=== PATIENT | male | born 1945 | race Asian ===

== ENCOUNTER → 2017-09-22 08:49 | Outpatient (CLI) | payer MEDICARE, OTHER, SELFPAY ==
[2017-09-22 11:03] LABS: Absolute Lymphocyte Count 1.57 X10^3/ul (0.83-4.51); Absolute Neutrophil Count 3.9 X10^3/uL (2.0-7.7); Basophil# 0.04 X10^3/uL; Basophil% 0.7 % (0-1); Eosinophil# 0.11 X10^3/uL; Eosinophils% 1.8 % (0-5); Hemoglobin 14.5 g/dl (13.0-16.5); Lymphocyte # 1.57 X10^3/ul (4.0); Lymphocyte % 26.2 % (19-41); Mean Corpuscular Hgb 31.3 pg (27.0-32.0); Monocyte# 0.35 X10^3/uL; Monocyte% 5.8 % (0-10); Neutrophil # 3.92 X10^3/uL (2.7-7.7); Neutrophil % 65.3 % (47-70); Platelet Count 236 K/mm3 (150-450); RBC Distribution Width CV 12.3 % (11.6-14.6); RBC Distribution Width SD 42.4 fl (35.1-43.9); Red Blood Count 4.63 M/mm3 (4.6-6.2)
[2017-09-22 11:08] LABS: POSITIVE COUNT NO; POSITIVE DIFFERENTIAL NO; POSITIVE MORPHOLOGY NO
[2017-09-22 11:53] LABS: ALB/GLOB Ratio 0.9 RATIO (0.9-2.4); AST(SGOT) 48 U/L (15-37); Alanine Aminotransfer ALT/SGPT 43 U/L (16-61); Albumin, Serum 3.7 g/dL (3.2-5.0); Alkaline Phosphatase 80 U/L (45-117); Anion Gap 7 (5-15); BUN 16 mg/dL (7-18); Calcium,Total 8.9 mg/dL (8.5-10.1); Chloride 104 mmol/L (98-107); EST Glomerular Filtration Rate 78 mL/min (>60); Est Glom Filt Rate - Afr Amer 95 mL/min (>60); Globulin 3.9 g/dL (2.2-4.2); Glucose 174 mg/dL (74-106); Potassium 4.7 mmol/L (3.5-5.1); Protein, Total 7.6 g/dL (6.4-8.2); Sodium Level 139 mmol/L (136-145); Thyroid Stim Hormone (TSH) 1.15 uIU/mL (0.358-3.74)
[2017-09-23 11:40] LABS: Hep C Antibodies <0.1 s/co ratio (0.0-0.9)
== END ==
PROVIDERS: Family Provider Family Medicine Geriatric Medicine; PCP Family Medicine Geriatric Medicine; Visit Provider Family Medicine Geriatric Medicine
DX: E11.9 Type 2 diabetes mellitus without complications (principal); I10 Essential (primary) hypertension; F52.8 Other sexual dysfunction not due to a substance or known physiological condition; Z13.89 Encounter for screening for other disorder
CPT/HCPCS: 36415; 80053; 84403; 84443; 85025; 86803

== ENCOUNTER → 2018-09-28 15:00 | Outpatient (CLI) | payer MEDICARE, OTHER, SELFPAY ==
[2018-09-28 17:22] LABS: Absolute Lymphocyte Count 1.53 X10^3/ul (0.83-4.51); Absolute Neutrophil Count 3.8 X10^3/uL (2.0-7.7); Basophil# 0.04 X10^3/uL; Basophil% 0.7 % (0-1); Eosinophil# 0.05 X10^3/uL; Eosinophils% 0.8 % (0-5); Hematocrit 42.8 % (40-54); Hemoglobin 13.9 g/dl (13.0-16.5); Lymphocyte # 1.53 X10^3/ul (4.0); Lymphocyte % 25.9 % (19-41); Mean Corp Hgb Conc 32.5 g/gl (32-36); Mean Corpuscular Hgb 30.8 pg (27.0-32.0); Mean Corpuscular Volume 94.7 fL (80-94); Mean Platelet Vol. 11.2 fl (6.2-12.0); Monocyte# 0.45 X10^3/uL; Monocyte% 7.6 % (0-10); Neutrophil # 3.83 X10^3/uL (2.7-7.7); Neutrophil % 64.8 % (47-70); Platelet Count 240 K/mm3 (150-450); RBC Distribution Width CV 12.5 % (11.6-14.6); RBC Distribution Width SD 42.6 fl (35.1-43.9); Red Blood Count 4.52 M/mm3 (4.6-6.2); White Blood Count 5.9 K/mm3 (4.4-11.0)
[2018-09-28 17:26] LABS: POSITIVE COUNT NO; POSITIVE DIFFERENTIAL NO; POSITIVE MORPHOLOGY NO
[2018-09-28 17:39] LABS: Vitamin D,25 Hydroxy 32.6 ng/mL (29.95-100.01)
[2018-09-28 17:45] LABS: ALB/GLOB Ratio 1.1 RATIO (0.9-2.4); AST(SGOT) 22 U/L (15-37); Alanine Aminotransfer ALT/SGPT 42 U/L (16-61); Albumin, Serum 3.8 g/dL (3.2-5.0); Alkaline Phosphatase 73 U/L (45-117); Anion Gap 8 (5-15); BUN 16 mg/dL (7-18); BUN/Creat Ratio 13.2 RATIO (10-20); Calcium,Total 8.8 mg/dL (8.5-10.1); Chloride 102 mmol/L (98-107); Creatinine, Serum 1.21 mg/dL (0.70-1.30); EST Glomerular Filtration Rate 63 mL/min (>60); Est Glom Filt Rate - Afr Amer 76 mL/min (>60); Globulin 3.4 g/dL (2.2-4.2); Glucose 246 mg/dL (74-106); Potassium 3.8 mmol/L (3.5-5.1); Protein, Total 7.2 g/dL (6.4-8.2); Sodium Level 140 mmol/L (136-145); Thyroid Stim Hormone (TSH) 1.05 uIU/mL (0.358-3.74)
== END ==
PROVIDERS: Family Provider Family Medicine Geriatric Medicine; PCP Family Medicine Geriatric Medicine; Visit Provider Family Medicine Geriatric Medicine
DX: E11.9 Type 2 diabetes mellitus without complications (principal); E55.9 Vitamin D deficiency, unspecified; I10 Essential (primary) hypertension; F52.8 Other sexual dysfunction not due to a substance or known physiological condition
CPT/HCPCS: 36415; 80053; 82306; 84403; 84443; 85025

== ENCOUNTER → 2019-03-10 14:19 | Outpatient (CLI) | payer MEDICARE, OTHER, SELFPAY ==
[2019-03-10 17:12] LABS: HIV - WCH Non-Reactive (Nonreactive)
[2019-03-10 17:57] LABS: Chlamydia Trachomatis by PCR Negative (Negative); Neisserai gonorrhoeae by PCR Negative (Negative); Probe Check PASS; Specimen Processing Control PASS
[2019-03-10 17:58] LABS: Sample Adequacy Control PASS
== END ==
PROVIDERS: Family Provider Family Medicine Geriatric Medicine; PCP Family Medicine Geriatric Medicine; Visit Provider Family Medicine Geriatric Medicine
DX: A64 Unspecified sexually transmitted disease (principal)
CPT/HCPCS: 36415; 86703; 87491; 87591

== ENCOUNTER → 2019-04-13 15:35 | Outpatient (CLI) | payer MEDICARE, OTHER, SELFPAY ==
[2019-04-13 16:35] LABS: Absolute Lymphocyte Count 1.16 X10^3/uL (0.83-4.51); Absolute Neutrophil Count 10.3 X10^3/uL (2.0-7.7); Basophil# 0.05 X10^3/uL; Basophil% 0.4 % (0-1); Eosinophil# 0.02 X10^3/uL; Eosinophils% 0.2 % (0-5); Hematocrit 40.8 % (40-54); Hemoglobin 13.4 g/dL (13.0-16.5); Lymphocyte # 1.16 X10^3/ul (4.0); Lymphocyte % 9.4 % (19-41); Mean Corp Hgb Conc 32.8 g/dL (32-36); Mean Corpuscular Hgb 31.4 pg (27.0-32.0); Mean Corpuscular Volume 95.6 fL (80-94); Mean Platelet Vol. 10.8 fl (6.2-12.0); Monocyte# 0.82 X10^3/uL; Monocyte% 6.6 % (0-10); NRBC Flagged by Analyzer 0 % (0-5); Neutrophil # 10.29 X10^3/uL (2.7-7.7); Neutrophil % 83.2 % (47-70); Platelet Count 273 K/mm3 (150-450); RBC Distribution Width CV 12.4 % (11.6-14.6); RBC Distribution Width SD 43.1 fl (35.1-43.9); Red Blood Count 4.27 M/mm3 (4.6-6.2); White Blood Count 12.4 K/mm3 (4.4-11.0)
[2019-04-13 17:00] LABS: ALB/GLOB Ratio 0.9 RATIO (0.9-2.4); AST(SGOT) 24 U/L (15-37); Alanine Aminotransfer ALT/SGPT 34 U/L (16-61); Albumin, Serum 3.6 g/dL (3.2-5.0); Alkaline Phosphatase 143 U/L (45-117); Anion Gap 7 (5-15); BUN 22 mg/dL (7-18); BUN/Creat Ratio 19.8 RATIO (10-20); Calcium,Total 9.1 mg/dL (8.5-10.1); Chloride 101 mmol/L (98-107); Creatinine, Serum 1.11 mg/dL (0.70-1.30); EST Glomerular Filtration Rate 69 mL/min (>60); Est Glom Filt Rate - Afr Amer 84 mL/min (>60); Globulin 4.2 g/dL (2.2-4.2); Glucose 231 mg/dL (74-106); Potassium 3.9 mmol/L (3.5-5.1); Protein, Total 7.8 g/dL (6.4-8.2); Sodium Level 138 mmol/L (136-145); Thyroid Stim Hormone (TSH) 1.12 uIU/mL (0.358-3.74)
== END ==
PROVIDERS: Family Provider Family Medicine Geriatric Medicine; PCP Family Medicine Geriatric Medicine; Visit Provider Family Medicine Geriatric Medicine
DX: E11.9 Type 2 diabetes mellitus without complications (principal); I10 Essential (primary) hypertension; E55.9 Vitamin D deficiency, unspecified
CPT/HCPCS: 36415; 80053; 82306; 84443; 85025

== ENCOUNTER → 2019-09-30 16:16 | Outpatient (CLI) | payer MEDICARE, OTHER, SELFPAY ==
[2019-09-30 16:42] LABS: Absolute Lymphocyte Count 1.56 X10^3/uL (0.83-4.51); Absolute Neutrophil Count 3.1 X10^3/uL (2.0-7.7); Basophil# 0.04 X10^3/uL; Basophil% 0.8 % (0-1); Eosinophil# 0.11 X10^3/uL; Eosinophils% 2.1 % (0-5); Hemoglobin 13.6 g/dL (13.0-16.5); Lymphocyte # 1.56 X10^3/ul (4.0); Lymphocyte % 29.6 % (19-41); Mean Corp Hgb Conc 32.4 g/dL (32-36); Mean Corpuscular Hgb 30.6 pg (27.0-32.0); Mean Corpuscular Volume 94.6 fL (80-94); Mean Platelet Vol. 10.7 fl (6.2-12.0); Monocyte# 0.41 X10^3/uL; Monocyte% 7.8 % (0-10); NRBC Flagged by Analyzer 0 % (0-5); Neutrophil # 3.14 X10^3/uL (2.7-7.7); Neutrophil % 59.5 % (47-70); Platelet Count 218 K/mm3 (150-450); RBC Distribution Width CV 12.3 % (11.6-14.6); RBC Distribution Width SD 42.8 fl (35.1-43.9); Red Blood Count 4.44 M/mm3 (4.6-6.2); White Blood Count 5.3 K/mm3 (4.4-11.0)
[2019-09-30 17:00] LABS: ALB/GLOB Ratio 1.1 RATIO (0.9-2.4); AST(SGOT) 29 U/L (15-37); Alanine Aminotransfer ALT/SGPT 54 U/L (16-61); Albumin, Serum 3.9 g/dL (3.2-5.0); Alkaline Phosphatase 94 U/L (45-117); Anion Gap 6 (5-15); BUN 18 mg/dL (7-18); Chloride 102 mmol/L (98-107); EST Glomerular Filtration Rate 63 mL/min (>60); Est Glom Filt Rate - Afr Amer 76 mL/min (>60); Globulin 3.6 g/dL (2.2-4.2); Glucose 234 mg/dL (74-106); Potassium 3.9 mmol/L (3.5-5.1); Protein, Total 7.5 g/dL (6.4-8.2); Sodium Level 139 mmol/L (136-145); Thyroid Stim Hormone (TSH) 1.78 uIU/mL (0.358-3.74)
[2019-10-04 10:58] LABS: Vitamin D,25 Hydroxy 47.6 ng/mL
== END ==
PROVIDERS: PCP Family Medicine Geriatric Medicine; Visit Provider Family Medicine Geriatric Medicine
DX: E11.9 Type 2 diabetes mellitus without complications (principal); E55.9 Vitamin D deficiency, unspecified; F52.8 Other sexual dysfunction not due to a substance or known physiological condition; I10 Essential (primary) hypertension
CPT/HCPCS: 36415; 80053; 82306; 84403; 84443; 85025

== ENCOUNTER → 2019-10-25 11:47 | Outpatient (CLI) | payer MEDICARE, OTHER, SELFPAY ==
--- NOTE | 2019-10-25 12:12 | RAD_ITS ---
STUDY: X-RAY - ABDOMEN/PELVIS REASON FOR EXAM: Male, 74 years old. FECAL IMPACTION X 1 MO. PROBABLE D/T NEW PRE-DIABETES MEDS TECHNIQUE: AP supine and upright views of the abdomen and pelvis. COMPARISON: Comparison is made with prior study dated August 29, 2016. FINDINGS: Normal visualized lung bases. There is an abundance of fecal material throughout the colon. There is no demonstrated free abdominal air. The visualized liver, spleen and kidneys are grossly normal in size and morphology. There are calcified phleboliths in the pelvis. There are degenerative changes of the visualized lumbar spine. RAD/Abd Inc Decub and/or Erect IMPRESSION: Large amount of fecal material is seen in the colon. Electronically Signed: Daniel Odom, at 12:56 EDT , Service support ,
[2019-10-25 12:27] LABS: Absolute Lymphocyte Count 1.22 X10^3/uL (0.83-4.51); Absolute Neutrophil Count 3.8 X10^3/uL (2.0-7.7); Basophil# 0.04 X10^3/uL; Basophil% 0.7 % (0-1); Eosinophil# 0.02 X10^3/uL; Eosinophils% 0.4 % (0-5); Hematocrit 42.7 % (40-54); Hemoglobin 14.1 g/dL (13.0-16.5); Lymphocyte # 1.22 X10^3/ul (4.0); Lymphocyte % 22.5 % (19-41); Mean Corpuscular Hgb 31.4 pg (27.0-32.0); Mean Corpuscular Volume 95.1 fL (80-94); Mean Platelet Vol. 10.3 fl (6.2-12.0); Monocyte# 0.34 X10^3/uL; Monocyte% 6.3 % (0-10); NRBC Flagged by Analyzer 0 % (0-5); Neutrophil # 3.79 X10^3/uL (2.7-7.7); Neutrophil % 69.9 % (47-70); Platelet Count 229 K/mm3 (150-450); RBC Distribution Width CV 12.1 % (11.6-14.6); RBC Distribution Width SD 42.5 fl (35.1-43.9); Red Blood Count 4.49 M/mm3 (4.6-6.2); White Blood Count 5.4 K/mm3 (4.4-11.0)
[2019-10-25 12:58] LABS: ALB/GLOB Ratio 1.2 RATIO (0.9-2.4); AST(SGOT) 25 U/L (15-37); Alanine Aminotransfer ALT/SGPT 34 U/L (16-61); Albumin, Serum 4.1 g/dL (3.2-5.0); Alkaline Phosphatase 67 U/L (45-117); Anion Gap 6 (5-15); BUN 17 mg/dL (7-18); BUN/Creat Ratio 15.3 RATIO (10-20); Calcium,Total 9.5 mg/dL (8.5-10.1); Chloride 103 mmol/L (98-107); Creatinine, Serum 1.11 mg/dL (0.70-1.30); EST Glomerular Filtration Rate 69 mL/min (>60); Est Glom Filt Rate - Afr Amer 83 mL/min (>60); Globulin 3.5 g/dL (2.2-4.2); Glucose 108 mg/dL (74-106); Potassium 4.4 mmol/L (3.5-5.1); Protein, Total 7.6 g/dL (6.4-8.2); Sodium Level 138 mmol/L (136-145); Thyroid Stim Hormone (TSH) 1.02 uIU/mL (0.358-3.74)
== END ==
LOC: POLAB3 11:47 → RAD 12:10
PROVIDERS: PCP Family Medicine Geriatric Medicine; Referring Provider Family Medicine Geriatric Medicine; Visit Provider Family Medicine Geriatric Medicine
DX: K56.41 Fecal impaction (principal); I10 Essential (primary) hypertension
CPT/HCPCS: 36415; 74019; 80053; 84443; 85025

== ENCOUNTER → 2019-11-22 15:49 | Outpatient (CLI) | payer MEDICARE, OTHER, SELFPAY ==
--- NOTE | 2019-11-22 15:53 | RAD_ITS ---
STUDY: X-RAY - THORACIC SPINE REASON FOR EXAM: Male, 74 years old. PATIENT STATES WAS RAKING LEAVES IS THE ONLY THING HE CAN THINK THAT HAS MADE HIS LOWER CERVICAL INTO HIS UPPER THORACIC HURT FOR ABOUT 1 WEEK NOW. TECHNIQUE: 4 view(s) of the thoracic spine were obtained. COMPARISON: None. FINDINGS: Normal kyphosis of the thoracic spine. There is a minimal lower thoracic levoscoliosis. There is endplate spondylosis of the mid to lower thoracic spine. Normal disc space heights. The soft tissue structures are unremarkable. RAD/Thoracic Spine 3 Views IMPRESSION: Minimal lower thoracic levoscoliosis. Endplate spondylosis of the mid to lower thoracic spine. There is no evidence of fracture or subluxation. Electronically Signed: Edwardo Heath MD at 16:24 EDT , Service support ,
--- NOTE | 2019-11-22 16:00 | RAD_ITS ---
STUDY: X-RAY - CERVICAL SPINE REASON FOR EXAM: Male, 74 years old. PATIENT STATES WAS RAKING LEAVES IS THE ONLY THING HE CAN THINK THAT HAS MADE HIS LOWER CERVICAL INTO HIS UPPER THORACIC HURT FOR ABOUT 1 WEEK NOW. TECHNIQUE: 3 view(s) of the cervical spine were obtained. COMPARISON: None FINDINGS: Normal anterior atlantoaxial articulation. Normal odontoid process. Normal cervical lordosis. There is minimal endplate spondylosis of C5-C7. Normal disc space heights. The soft tissue structures are unremarkable. RAD/Cerv Spine 2 or 3 Views IMPRESSION: Minimal endplate spondylosis of C5-C7. There is no evidence of fracture or subluxation. Disc spacing is preserved. Electronically Signed: Edwardo Heath MD at 16:23 EDT , Service support ,
== END ==
PROVIDERS: PCP Family Medicine Geriatric Medicine; Referring Provider Family Medicine Geriatric Medicine; Visit Provider Family Medicine Geriatric Medicine
DX: M47.24 Other spondylosis with radiculopathy, thoracic region (principal); M47.812 Spondylosis without myelopathy or radiculopathy, cervical region
CPT/HCPCS: 72040; 72072

== ENCOUNTER → 2019-12-30 16:19 | Outpatient (CLI) | payer MEDICARE, OTHER, SELFPAY ==
[2019-12-30 17:12] LABS: Absolute Lymphocyte Count 1.44 X10^3/uL (0.83-4.51); Absolute Neutrophil Count 3.7 X10^3/uL (2.0-7.7); Basophil# 0.04 X10^3/uL; Basophil% 0.7 % (0-1); Eosinophil# 0.04 X10^3/uL; Eosinophils% 0.7 % (0-5); Hemoglobin 12.8 g/dL (13.0-16.5); Lymphocyte # 1.44 X10^3/ul (4.0); Lymphocyte % 24.9 % (19-41); Mean Corp Hgb Conc 32.8 g/dL (32-36); Mean Corpuscular Hgb 32.6 pg (27.0-32.0); Mean Corpuscular Volume 99.2 fL (80-94); Mean Platelet Vol. 9.9 fl (6.2-12.0); Monocyte% 8.7 % (0-10); NRBC Flagged by Analyzer 0 % (0-5); Neutrophil # 3.72 X10^3/uL (2.7-7.7); Neutrophil % 64.3 % (47-70); Platelet Count 291 K/mm3 (150-450); RBC Distribution Width SD 47.5 fl (35.1-43.9); Red Blood Count 3.93 M/mm3 (4.6-6.2); White Blood Count 5.8 K/mm3 (4.4-11.0)
[2019-12-30 17:27] LABS: Vitamin D,25 Hydroxy 41.7 ng/mL
[2019-12-30 17:34] LABS: AST(SGOT) 13 U/L (15-37); Alanine Aminotransfer ALT/SGPT 28 U/L (16-61); Albumin, Serum 3.6 g/dL (3.2-5.0); Alkaline Phosphatase 77 U/L (45-117); Anion Gap 6 (5-15); BUN 16 mg/dL (7-18); BUN/Creat Ratio 15.8 RATIO (10-20); Calcium,Total 9.2 mg/dL (8.5-10.1); Chloride 101 mmol/L (98-107); Creatinine, Serum 1.01 mg/dL (0.70-1.30); EST Glomerular Filtration Rate 77 mL/min (>60); Est Glom Filt Rate - Afr Amer 93 mL/min (>60); Globulin 3.6 g/dL (2.2-4.2); Glucose 164 mg/dL (74-106); Potassium 3.8 mmol/L (3.5-5.1); Protein, Total 7.2 g/dL (6.4-8.2); Sodium Level 139 mmol/L (136-145); Thyroid Stim Hormone (TSH) 1.32 uIU/mL (0.358-3.74)
== END ==
PROVIDERS: PCP Family Medicine Geriatric Medicine; Visit Provider Family Medicine Geriatric Medicine
DX: E11.9 Type 2 diabetes mellitus without complications (principal); E55.9 Vitamin D deficiency, unspecified; F52.8 Other sexual dysfunction not due to a substance or known physiological condition; I10 Essential (primary) hypertension
CPT/HCPCS: 36415; 80053; 82306; 84403; 84443; 85025

== ENCOUNTER → 2020-04-06 16:14 | Outpatient (CLI) | payer MEDICARE, OTHER, SELFPAY ==
[2020-04-06 17:39] LABS: Absolute Neutrophil Count 3.8 X10^3/uL (2.0-7.7); Basophil# 0.04 X10^3/uL; Basophil% 0.6 % (0-1); Eosinophil# 0.06 X10^3/uL; Hematocrit 43.5 % (40-54); Hemoglobin 14.3 g/dL (13.0-16.5); Lymphocyte % 27.4 % (19-41); Mean Corp Hgb Conc 32.9 g/dL (32-36); Mean Corpuscular Hgb 32.2 pg (27.0-32.0); Mean Platelet Vol. 10.4 fl (6.2-12.0); Monocyte# 0.56 X10^3/uL; NRBC Flagged by Analyzer 0 % (0-5); Neutrophil # 3.84 X10^3/uL (2.7-7.7); Neutrophil % 61.8 % (47-70); Platelet Count 272 K/mm3 (150-450); RBC Distribution Width CV 11.9 % (11.6-14.6); RBC Distribution Width SD 43.2 fl (35.1-43.9); Red Blood Count 4.44 M/mm3 (4.6-6.2); White Blood Count 6.2 K/mm3 (4.4-11.0)
[2020-04-06 18:27] LABS: ALB/GLOB Ratio 1.1 RATIO (0.9-2.4); AST(SGOT) 35 U/L (15-37); Alanine Aminotransfer ALT/SGPT 31 U/L (16-61); Albumin, Serum 3.9 g/dL (3.2-5.0); Alkaline Phosphatase 66 U/L (45-117); Anion Gap 7 (5-15); BUN 21 mg/dL (7-18); BUN/Creat Ratio 13.2 RATIO (10-20); Calcium,Total 9.6 mg/dL (8.5-10.1); Chloride 102 mmol/L (98-107); Creatinine, Serum 1.59 mg/dL (0.70-1.30); EST Glomerular Filtration Rate 46 mL/min (>60); Est Glom Filt Rate - Afr Amer 55 mL/min (>60); Globulin 3.6 g/dL (2.2-4.2); Glucose 141 mg/dL (74-106); Potassium 4.5 mmol/L (3.5-5.1); Protein, Total 7.5 g/dL (6.4-8.2); Sodium Level 140 mmol/L (136-145); Thyroid Stim Hormone (TSH) 1.31 uIU/mL (0.358-3.74)
== END ==
PROVIDERS: PCP Family Medicine Geriatric Medicine; Visit Provider Family Medicine Geriatric Medicine
DX: E11.9 Type 2 diabetes mellitus without complications (principal); E55.9 Vitamin D deficiency, unspecified; F52.8 Other sexual dysfunction not due to a substance or known physiological condition; I10 Essential (primary) hypertension
CPT/HCPCS: 36415; 80053; 82306; 84403; 84443; 85025

== ENCOUNTER → 2020-05-15 17:54 | Outpatient (CLI) | payer MEDICARE, OTHER, SELFPAY | PROVIDERS: PCP Family Medicine Geriatric Medicine; Referring Provider Family Medicine Geriatric Medicine; Visit Provider Family Medicine Geriatric Medicine | DX: U07.1 COVID-19 (principal) | CPT/HCPCS: 87633; 87635; C9803; U0002; U0003 ==

== ENCOUNTER 2020-05-16 16:18 | Emergency (ER) | payer MEDICARE, OTHER, SELFPAY ==
[2020-05-16 16:19] VITALS: BP 152/78; PULSE 92; RESP 18; TEMP 36.2; O2SAT 98; BMI 21.7
--- NOTE | 2020-05-16 17:13 | ED.DCSUM_ITS ---
History of Present Illness Chief Complaint: General Illness Informant: Patient Narrative: Patient is a previously healthy 74-year-old male who presents to the emergency department for decreased appetite. He was diagnosed with Covid. His initial symptoms started this past Friday with URI-like symptoms. He has had some body aches. He denies any significant shortness of breath. He has developed a cough. No nausea/vomiting or diarrhea. He states that he has lost his taste which has contributed to not want to eat anything. He has been drinking some ensures. States he has lost a few pounds over the past week. He is tolerating fluids well still. Patient has been treating himself at home with Tylenol and ibuprofen. Patient is just frustrated as his symptoms have not started to improve at this point. He denies any chest pain. No abdominal pain. No fevers. No headache. No stiff neck. Past Medical History - Allergies and Home Meds Allergies/Adverse Reactions: Allergies No Known Allergies Allergy (Verified 05/16/20 16:22) Primary Care Physician: Tigre Ortiz Chi, MD [Primary Care Provider] - 3-5 Days if not improving Prior records reviewed: Yes Past Medical History: None Smoking Status: Never smoker Review of Systems All systems negative except as indicated General: Denies: Chills, Fever, Sweats Eyes: Denies: Visual changes - bilaterally, Diplopia ENT: Denies: Rhinorrhea, Sore throat Cardiovascular: Denies: Chest pain, Palpitations Respiratory: Reports: Cough. Denies: Dyspnea, Dyspnea on exertion Gastrointestinal: Denies: Abdominal pain, Nausea, Vomiting, Diarrhea Genitourinary: Denies: Dysuria, Hematuria, Frequency Musculoskeletal: Reports: Myalgias. Denies: Back pain, Extremity Pain Skin: Denies: Rash, Wounds Neurological: Denies: Headache, Weakness, Numbness Physical Exam Vital Signs/Narrative: Vital Signs Temp Pulse Resp BP Pulse Ox 05/16/20 16:19 97.2 F L 92 18 152/78 H 98 Inital Vital Signs reviewed: Yes General: Well nourished, Well developed, No Acute Distress Head: Normocephalic, Atraumatic Eyes: Perrl, EOMI ENT: Moist mucous membranes, No rhinorrhea Neck: Supple, Nontender Cardiovascular: Regular rate, Regular rhythm, No murmurs Respiratory: No distress, CTA bilaterally, Chest nontender Abdomen: Soft, Nontender, Nondistended, Normal bowel sounds Back: Nontender, Normal Inspection Extremities: Nontender, No edema Skin: Normal color, No rash Neurological: Alert, Oriented x3, Normal Strength, Normal Sensation Psychological: Normal affect, Normal Mood Diagnostic/Tx/Re-eval - Medical Decision Making Patient presents to the emergency department after being found out to be Covid positive. He is concerned as he has a loss of taste and has not been eating very much lately. Upon arrival to the emergency department he is not hypotensive. He is not tachycardic. He is well-appearing overall. No oxygen desaturations. He does appear comfortable in bed. Still tolerating fluids. Discussed doing lab work and full work-up with the fact his vital signs are stable and he still tolerating fluids I do not feel this is necessary at this time. I do expect his symptoms to start improving over the next few days. Jase paz is currently self isolating at home. He has no shortness of breath. Has been satting well. Will discharge home in stable condition. He is to keep follow-up with his PCP. Did advise to get a pulse oximeter if he starts to develop any shortness of breath. If he has any desaturations he can return to the emergency department at any time. He understands and is agreeable with this plan. All questions answered. ED Disposition - Plan for ED Patient: Disposition: Home or Assisted Living Diagnosis: COVID-19, Loss of appetite Instructions: ED URI Viral Referrals: Tigre Ortiz Chi, MD [Primary Care Provider] - 3-5 Days if not improving
[2020-05-16 17:46] VITALS: BP 130/71; PULSE 86; RESP 16; O2SAT 97
== END 2020-05-16 17:47 | disposition home or self-care (01) ==
PROVIDERS: Emergency Provider Emergency Medicine; PCP Family Medicine Geriatric Medicine
DX: U07.1 COVID-19 (principal)
CPT/HCPCS: 99281

== ENCOUNTER 2020-06-07 01:41 | Inpatient (IN) | payer MEDICARE, OTHER, SELFPAY ==
[2020-06-07] VITALS (13 sets, daily range): BP systolic 114–149; BP diastolic 59–91; PULSE 65–91; RESP 15–24; TEMP 35.8–36.6; O2SAT 95–100; BMI 21.5; BMI 21.2
--- NOTE | 2020-06-07 02:04 | ED.VIS.GEN ---
History of Present Illness Chief Complaint: Allergic Reaction Informant: Patient Onset: - - 30 min Context: - - awoke w/ sx around 0130 Timing: Continuous Quality: swollen Location: tongue Current Severity: Severe Maximum Severity: Severe Worsened by: nothing Relieved by: nothing Associated Symptoms: cannot swallow. breathing fine. no other complaints. Narrative: Patient woke up with a very swollen tongue. He states it is worse on the left, but he can feel that it goes all the way back toward his throat. He cannot swallow but he is having no trouble breathing. Nothing also swollen anywhere else, and no other symptoms tonight. He states this happened one other time about 2 months ago, it was just the anterior aspect of his tongue, and went away on its own. He is on lisinopril for blood pressure, it was started around 5 months ago. Also he just had COVID-19, and is fully recovered within the last week, his illness was uncomplicated. He is on no new medications now. - Past Medical History (1) Hypertension Status: Chronic (2) Hyperlipidemia Status: Chronic (3) Type 2 diabetes mellitus Status: Chronic (4) BPH (benign prostatic hyperplasia) Status: Chronic Past Medical History - Allergies and Home Meds Allergies/Adverse Reactions: Allergies No Known Allergies Allergy (Verified 06/07/20 01:47) Primary Care Physician: Tigre Ortiz Chi, MD [Primary Care Provider] - Lives: Spouse/ Significant Other Smoking Status: Never smoker Review of Systems General: Denies: Chills, Fever, Sweats Eyes: Denies: Visual changes - bilaterally, Diplopia ENT: Reports: - - Swollen tongue. Dysphagia as a result.. Denies: Rhinorrhea, Sore throat Cardiovascular: Denies: Chest pain, Palpitations Respiratory: Denies: Dyspnea, Cough, Dyspnea on exertion Gastrointestinal: Denies: Abdominal pain, Nausea, Vomiting, Diarrhea, Melena, Hematochezia Genitourinary: Denies: Dysuria, Hematuria, Frequency Musculoskeletal: Denies: Back pain, Swelling, Extremity Pain Skin: Denies: Rash, Wounds Neurological: Denies: Headache, Weakness, Numbness Physical Exam Vital Signs/Narrative: Vital Signs Temp Pulse Resp BP Pulse Ox 06/07/20 01:42 96.5 F L 76 16 138/91 H 100 Inital Vital Signs reviewed: Yes General: Well nourished, Well developed, No Acute Distress - Speaking somewhat garbled, but able to converse without difficulty or stridor Head: Normocephalic, Atraumatic Eyes: Perrl, EOMI ENT: Moist mucous membranes, No rhinorrhea, - - Very edematous tongue, asymmetric with worse edema on the left. Progresses posteriorly. Not able to visualize the patient's soft palate or posterior oropharynx. No trismus. No sublingual edema/tenderness. Neck: Supple, Nontender Cardiovascular: Regular rate, Regular rhythm, No murmurs. Negative for: Tachycardia Respiratory: No distress, CTA bilaterally, Chest nontender Abdomen: Soft, Nontender, Nondistended, Normal bowel sounds Back: Nontender, Normal Inspection Extremities: Nontender, No edema Skin: Normal color, No rash Neurological: Alert, Oriented x3, Cranial nerves II-XII grossly intact, Normal Strength, Normal Sensation, Normal Gait Psychological: Normal affect, Normal Mood Diagnostic/Tx/Re-eval Laboratory Tests 06/07/20 06/07/20 Range/Units 01:50 01:50 WBC 8.0 (4.4-11.0) K/mm3 RBC 4.17 L (4.6-6.2) M/mm3 Hgb 13.0 (13.0-16.5) g/dL Hct 41.5 (40-54) % MCV 99.5 H (80-94) fL MCH 31.2 (27.0-32.0) pg MCHC 31.3 L (32-36) g/dL RDW Std Deviation 50.3 H (35.1-43.9) fl RDW Coeff of Juan Manuel 13.9 (11.6-14.6) % Plt Count 304 (150-450) K/mm3 MPV 10.1 (6.2-12.0) fl Immature Gran % (Auto) 0.300 (0.0-0.9) % Neut % (Auto) 57.0 (47-70) % Lymph % (Auto) 28.3 (19-41) % [place] % (Auto) 11.8 H (0-10) % Eos % (Auto) 1.8 (0-5) % Baso % (Auto) 0.8 (0-1) % Absolute Neuts (auto) 4.6 (2.0-7.7) X10^3/uL Absolute Lymphs (auto) 2.26 (0.83-4.51) X10^3/uL Nucleated RBC % 0 (0-5) % Sodium 141 (136-145) mmol/L Potassium 4.1 (3.5-5.1) mmol/L Chloride 107 (98-107) mmol/L Carbon Dioxide 29.0 (21.0-32.0) mmol/L Anion Gap 5 (5-15) BUN 16 (7-18) mg/dL Creatinine 1.09 (0.70-1.30) mg/dL Estim Creat Clear Calc 54.81 ml/min Est GFR (MDRD) Af Amer 85 (>60) mL/min Est GFR (MDRD) Non-Af 70 (>60) mL/min BUN/Creatinine Ratio 14.7 (10-20) RATIO Glucose 129 H (74-106) mg/dL Calcium 9.2 (8.5-10.1) mg/dL - Medical Decision Making Suspect lisinopril involved here. He was given Decadron, Benadryl, Pepcid, labs drawn, plan is for admission to ICU for further observation. I do not think he needs to be intubated right now, but if he gets worse, anesthesia and ENT may need to be involved. We do not have icatibant. However after discussing with pharmacy, we do have ecallantide, a different bradykinin inhibitor. We will give him 1 dose of 30 mg subcutaneous here in the emergency department prior to admission. - Critical Care Time Critical care time (excluding procedures): 30-74 minutes, Including time spent:, Discussing w/Patient &/or Family/Refinery Operator Light Ends Recovery, Discussing w/Consultants, Arranging Admission or Transfer, Performing Direct Patient Care at Bedside ED Disposition - Plan for ED Patient: Disposition: Acute Care Hospital [facility] Diagnosis: Angioedema Referrals: Tigre Ortiz Chi, MD [Primary Care Provider] -
[2020-06-07 02:07] LABS: Absolute Lymphocyte Count 2.26 X10^3/uL (0.83-4.51); Absolute Neutrophil Count 4.6 X10^3/uL (2.0-7.7); Basophil# 0.06 X10^3/uL; Basophil% 0.8 % (0-1); Eosinophil# 0.14 X10^3/uL; Eosinophils% 1.8 % (0-5); Hematocrit 41.5 % (40-54); Lymphocyte # 2.26 X10^3/ul (4.0); Lymphocyte % 28.3 % (19-41); Mean Corp Hgb Conc 31.3 g/dL (32-36); Mean Corpuscular Hgb 31.2 pg (27.0-32.0); Mean Corpuscular Volume 99.5 fL (80-94); Mean Platelet Vol. 10.1 fl (6.2-12.0); Monocyte# 0.94 X10^3/uL; Monocyte% 11.8 % (0-10); NRBC Flagged by Analyzer 0 % (0-5); Neutrophil # 4.56 X10^3/uL (2.7-7.7); Platelet Count 304 K/mm3 (150-450); RBC Distribution Width CV 13.9 % (11.6-14.6); RBC Distribution Width SD 50.3 fl (35.1-43.9); Red Blood Count 4.17 M/mm3 (4.6-6.2)
[2020-06-07] MEDS: dexAMETHasone 10 MG/ML Vial IV (02:08)
[2020-06-07] MEDS: DiphenhydrAMINE 50 MG/ML Syringe 25 MG IV ×2 (02:08→05:44)
[2020-06-07] MEDS: Famotidine 200 MG/20 ML MDV 20 MG in 0.9% Normal Saline (Pres. free 8 ML 300 MG IV ×2 (02:09→10:34)
[2020-06-07 02:17] LABS: Anion Gap 5 (5-15); BUN 16 mg/dL (7-18); BUN/Creat Ratio 14.7 RATIO (10-20); Calcium,Total 9.2 mg/dL (8.5-10.1); Chloride 107 mmol/L (98-107); Creatinine, Serum 1.09 mg/dL (0.70-1.30); EST Glomerular Filtration Rate 70 mL/min (>60); Est Glom Filt Rate - Afr Amer 85 mL/min (>60); Estimated Creatinine Clearance 54.81 ml/min; Glucose 129 mg/dL (74-106); Potassium 4.1 mmol/L (3.5-5.1); Sodium Level 141 mmol/L (136-145)
--- NOTE | 2020-06-07 02:40 | HP.PCM_ITS ---
Problem List (1) Angioedema Status: Acute Qualifiers: Encounter type: initial encounter Qualified Code(s): T78.3XXA - Angioneurotic edema, initial encounter (2) BPH (benign prostatic hyperplasia) Status: Chronic Qualifiers: Lower urinary tract symptom presence: unspecified whether lower urinary tract symptoms present Qualified Code(s): N40.0 - Benign prostatic hyperplasia without lower urinary tract symptoms (3) Hyperlipidemia Status: Chronic Qualifiers: Hyperlipidemia type: unspecified Qualified Code(s): E78.5 - Hyperlipidemia, unspecified (4) Hypertension Status: Chronic Qualifiers: Hypertension type: essential hypertension Qualified Code(s): I10 - Essential (primary) hypertension (5) Type 2 diabetes mellitus Status: Chronic Qualifiers: Diabetes mellitus [facility] insulin use: without termite exterminator use Diabetes mellitus complication status: with other specified complication Qualified Code(s): E11.69 - Type 2 diabetes mellitus with other specified complication History of Present Illness Date of Admission: 06/07/20 Chief Complaint: Tongue edema with dyspnea. The patient is a 74 y/o M w/ PMHx: HTN, HLD, Diabetes mellitus type II with peripheral neuropathy, BPH who presents to the [facility] ED on 06/07/20 with history of sudden onset tongue edema and some difficulty breathing starting approximately 0130, awakening with the symptoms with also difficulty swallowing prompting ED presentation. Patient noted initial sensation of worsening swelling on the left side but continued to progress and states this happened approximately 2 months prior to current presentation but at that time was mostly on the anterior aspect of the tongue and resolved on its own. Patient notes some difficulty talking secondary to a swelling of his tongue and difficulty swallowing his saliva. Patient does take lisinopril and has been taking it for approximately 5 months. Of note patient had been evaluated recently in the ED on 05/16/20 with general illness at that time with decreased appetite, URI symptoms, body aches, cough as well as loss of sense of taste with diagnosis of Covid. Patient states he has been fully recovered from his coronavirus infection and asymptomatic for at least 1 week although he notes his taste is approximately 80% recovery. He denies any recent new medications. Work-up in the ED included T 96.5, heart rate 76, BP 138/91, respiratory rate 16, on a percent on room air, CBC with WC, hemoglobin 13, platelet 304 without marked shift, BMP unremarkable aside glucose 129. In the ED patient ministered famotidine, Benadryl and Decadron. Past Medical History Past Medical History (Chronic Problems): Chronic Problems Hypertension (Chronic) Hyperlipidemia (Chronic) Type 2 diabetes mellitus (Chronic) BPH (benign prostatic hyperplasia) (Chronic) Allergies No Known Allergies Allergy (Verified 06/07/20 01:47) Home Medications: Ambulatory Orders Medication Instructions Recorded Finasteride [Proscar] 5 mg PO DAILY 05/16/20 Gabapentin [Neurontin] 100 mg PO DAILY 05/16/20 Lisinopril [Zestril] 2.5 mg PO DAILY 05/16/20 Pioglitazone [Actos] 30 mg PO DAILY 05/16/20 Rosuvastatin Calcium [Crestor] 40 mg PO QHS 05/16/20 metFORMIN (XR) [Glucophage Xr] 500 mg PO BID 05/16/20 Surgical History: no surgical history Psychiatric History: No pertinent psych hx Lives: Alone Smoking Status: Never smoker Tobacco Use: Non-smoker Alcohol: None Drugs: None - *Family History Maternal History Items: - - Patient denies any market paternal or maternal family history including heart disease, diabetes or cancer. Paternal History Items: - - Patient denies any market paternal or maternal family history including heart disease, diabetes or cancer. Review of Systems Constitutional: Reports: Fatigue. Denies: Chills, Fever, Weight Change HEENT: Reports: Difficulty Swallowing, - - Lip edema, tongue edema .. Denies: Head Aches, Sinus Congestion, Sinus Drainage Cardiovascular: Denies: Chest Pain, Palpitations Respiratory: Reports: Shortness of Breath. Denies: Cough, Shortness of breath at rest, Sputum production Gastrointestinal: Denies: Abdominal Pain, Nausea, Vomiting Genitourinary: Denies: Dysuria Musculoskeletal: Denies: Joint Pain, Joint Tenderness Skin: Denies: Rash, Wounds Neurological: Denies: Numbness, Tingling, Focal weakness Psychiatric: Denies: Anxiety, Depression, Homicidal Ideations, Suicidal Ideations Hematologic/ Lymphatic: Denies: Easy Bruising, Easy Bleeding VTE Information - Inpt Only VTE Present on Admission: No VTE Mechan Device Prophylaxis: SCD's VTE Pharm Prophylaxis ordered?: Yes Patient Problems: Active and Suspected Problems Angioedema (Acute) Subjective: Patient seated upright in the ED bed, fatigued appearance, currently does not appear in acute respiratory distress but does have significant upper lip but primarily tongue edema and some oropharynx appearance of edema, able to move tongue some, some difficulty with swallowing and secretions he notes but no evidence of dyspnea. Objective: Physical Examination: General: awake, alert, oriented x 3 and cooperative, seated upright in the ED bed, fatigued appearance, no obvious current respiratory distress. Skin: normal color, turgor, no icterus, cyanosis. HEENT: AT/NC, EOMI, PERRLA, dry MM, no carotid bruits or JVD noted, some mild upper lip edema but primarily significant tongue edema and some oropharynx appearance of edema, able to move tongue some, some difficulty with swallowing and secretions he notes but no evidence of dyspnea. Lungs: CTA bilaterally, moderate effort, moderate decrease BL bases, no rales, ronchi or wheezing. Heart: Regular rate and rhythm; no gallop, rub audible. Abdomen: soft, NTTP, ND, normal BS, no HSM. Extremities: no cyanosis, clubbing, or edema. Neurological: patient awake, alert, oriented as noted; cognitive function intact; pupils equally reactive to light and accomodation; cranial nerves II-XII grossly normal, moving all 4 extremities, no focal deficits, strength mildly to moderately global decrease secondary to acute presentation. Psychiatric: affect appears fatigued, no obvious respiratory distress, no acute evidence of depressive or anxiety feelings. - Physical Exam Vitals/I&O's: Vital Signs Temp Pulse Resp BP Pulse Ox 96.5 F L 76 16 138/91 H 100 06/07/20 01:42 06/07/20 01:42 06/07/20 01:42 06/07/20 01:42 06/07/20 01:42 Oxygen Delivery Method Room Air Weight: 141 lb 8.588 oz Body Mass Index (BMI) 21.5 Laboratory Results 06/07/20 01:50: WBC 8.0, RBC 4.17 L, Hgb 13.0, Hct 41.5, MCV 99.5 H, MCH 31.2, MCHC 31.3 L, RDW Std Deviation 50.3 H, RDW Coeff of Juan Manuel 13.9, Plt Count 304, MPV 10.1, Immature Gran % (Auto) 0.300, Neut % (Auto) 57.0, Lymph % (Auto) 28.3, [place] % (Auto) 11.8 H, Eos % (Auto) 1.8, Baso % (Auto) 0.8, Absolute Neuts (auto) 4.6, Absolute Lymphs (auto) 2.26, Nucleated RBC % 0 06/07/20 01:50: Sodium 141, Potassium 4.1, Chloride 107, Carbon Dioxide 29.0, Anion Gap 5, BUN 16, Creatinine 1.09, Estim Creat Clear Calc 54.81, Est GFR (MDRD) Af Amer 85, Est GFR (MDRD) Non-Af 70, BUN/Creatinine Ratio 14.7, Glucose 129 H, Calcium 9.2 Assessment/Plan All Active Problems Angioedema (Acute) The patient is a 74 y/o M w/ PMHx: HTN, HLD, Diabetes mellitus type II with peripheral neuropathy, BPH who presents to the [facility] ED on 06/07/20 with history of sudden onset tongue edema and some difficulty breathing starting approximately 0130, awakening with the symptoms with also difficulty swallowing prompting ED presentation. 1. Acute angioedema with associated dyspnea and dysphagia: Given severity of presentation will admit to the ICU to be cautious, will request podiatric physician consultation, maintain n.p.o. status, head of bed with aspiration precautions, maintain airway cart near the room, will continue patient on scheduled famotidine, Benadryl and Solu-Medrol. Dosed x 1 Kalbitor (unclear if hereditary angioedema) in the ED. If any further concerns about airway may also consider ENT consultation. Lisinopril will be named as allergy and the patient chart. Will maintain on NS but if needed may change to D5NS. 2. Hypertension: Lisinopril will be placed as an allergy in patient chart, given difficulty swallowing and acute presentation will defer any oral additions, as needed IV hydralazine. 3. Hyperlipidemia: We will continue patient statin regimen once clinically appropriate for oral intake. 4. Diabetes mellitus type II: Hold oral home regimen, currently given status will maintain n.p.o. with addition of ADA diet once clinically improved, in the interim will maintain every 6 hour accu checks w/ ISS, may continue Neurontin once clinically improved and oral intake safe. 5. BPH: We will temporarily hold patient Proscar, resume once clinically imp roved as noted. 6. DVT prophylaxis: SCDs, Lovenox. 7. CODE status: Patient HCPOA is Jonathan Brizuela who is a friend and living will is [place] in place. Discussed CODE status at length including difference between FULL code, DNR-CCA and DNR-CC status. Following discussions about the differences in these status, requested Full Code status. Understands that he may need intubated for airway safety if his airway if further compromised. Advanced Care Planning Face to Face Time: 16 minutes. Inpatient E&M: 63423 Init Hosp L3 Procedures: 54731 Advncd Care Plan 30 Min
[2020-06-07] MEDS: ECALLANTIDE 30 MG SQ (03:17)
--- NOTE | 2020-06-07 03:44 | NURSING ---
Pt able to speak w/altered tones but is understandable. Pt able to protrude tongue, obvious swelling noted w/L>R; anterior neck palpated and L underside of mandible in soft tissue noted to be edematous as well. Pt able to swallow w/much difficulty noted.
[2020-06-07] MEDS: 0.9% Normal Saline 1,000 ML 100 ML IV (04:04)
--- NOTE | 2020-06-07 04:12 | NURSING ---
Noted swelling to L side of tongue is reducing; L underside to mandible still same as before; pt states that swallowing is getting easier too.
--- NOTE | 2020-06-07 04:54 | NURSING ---
Pt noted to have lowering oxygen saturation on monitor, began at 89% then dropped to 85%. Upon inspection, pt found to be asleep w/minimal chest rise noted. Pt woke on own as he felt someone watching him. Explained to pt that he has a bit of sleep apnea; also explained to pt staff concerns for increasing airway obstruction to be causing oxygen sats to drop. Pt protruded tongue and swelling cont to decrease as noted from initial assessment. Pt able to swallow much easier now. Pt states Thank you for your concern and assessment of the situation.
[2020-06-07] MEDS: Insulin Lispro 100 UNIT/ML INSULN.PEN SC (05:43)
[2020-06-07 05:46] LABS: Bedside Glucose 198 mg/dL (70-110)
--- NOTE | 2020-06-07 07:00 | CON.PCM_ITS ---
Reason for Consult Date of Consultation: 06/07/20 Reason for Consultation: Angioedema History of Present Illness: The patient is a 74-year-old male, with a history as outlined below, who presented to the emergency department on June 07 with complaints of rather acute onset tongue swelling and difficulty swallowing at approximately 1:30 AM. The patient did note that the left side of his tongue was significantly swollen out of proportion to the rest. He also reported that he was having difficulty swallowing and also perceived a certain degree of dyspnea as well. The patient recently recovered from a coronavirus infection at the end of April. He is currently prescribed an MICHELLE inhibitor and states that he has been on the aforementioned medication now for approximately 6 months. He does recall having had a similar episode to this approximately 2 months ago. However, that parti cular episode was much less severe and resolved on its own. On presentation to the emergency department, the patient was noted to be afebrile and hemodynamically stable. He was maintaining appropriate oxygen saturations on room air. Laboratory evaluation revealed a normal white blood cell count. Chemistry profile was unremarkable. The patient was treated symptomatically in the emergency department with steroids, Benadryl, Pepcid and Kalbitor. The patient was subsequently admitted to the medical intensive care unit for close monitoring. Overnight, the patient has remained clinically stable with improvement in his oropharyngeal swelling noted. He denies any shortness of breath this morning. He does report improvement in his swallowing. Past Medical History Past Medical History (Chronic Problems): Chronic Problems Hypertension (Chronic) Hyperlipidemia (Chronic) Type 2 diabetes mellitus (Chronic) BPH (benign prostatic hyperplasia) (Chronic) Allergies lisinopril Allergy (Verified 06/07/20 03:07) Angioedema Home Medications: Ambulatory Orders Medication Instructions Recorded Finasteride [Proscar] 5 mg PO DAILY 05/16/20 Gabapentin [Neurontin] 100 mg PO DAILY 05/16/20 Pioglitazone [Actos] 30 mg PO DAILY 05/16/20 Rosuvastatin Calcium [Crestor] 40 mg PO QHS 05/16/20 metFORMIN (XR) [Glucophage Xr] 500 mg PO BID 05/16/20 MethylPREDNISolone DosePak [Medrol 4 mg PO UD #1 box 06/07/20 DosePak] Surgical History: no surgical history Psychiatric History: No pertinent psych hx Lives: Alone Smoking Status: Never smoker Tobacco Use: Non-smoker Alcohol: None Drugs: None - *Family History Maternal History Items: - - Patient denies any market paternal or maternal family history including heart disease, diabetes or cancer. Paternal History Items: - - Patient denies any market paternal or maternal family history including heart disease, diabetes or cancer. Review of Systems Constitutional: Reports: Weight Change Eyes: Denies: Blurred vision, Double vision HEENT: Reports: Difficulty Swallowing Cardiovascular: Denies: Chest Pain, Palpitations Respiratory: Reports: Shortness of Breath, Shortness of breath at rest. Denies: Cough, Sputum production Gastrointestinal: Denies: Abdominal Pain, Nausea, Vomiting Genitourinary: Denies: Dysuria Musculoskeletal: Denies: Joint Pain, Joint Tenderness Skin: Denies: Rash, Wounds Neurological: Denies: Numbness, Tingling, Focal weakness Psychiatric: Denies: Anxiety, Depression, Homicidal Ideations, Suicidal Ideations Hematologic/ Lymphatic: Denies: Easy Bruising, Easy Bleeding Patient Problems: Active and Suspected Problems Angioedema (Acute) Objective: The patient's most recent lab work, culture data and imaging studies have all been personally reviewed. - Physical Exam Vitals/I&O's: Vital Signs Temp Pulse Resp BP Pulse Ox 97.7 F L 74 16 132/79 H 97 06/07/20 03:40 06/07/20 06:00 06/07/20 06:00 06/07/20 06:00 06/07/20 06:00 Oxygen Delivery Method Room Air Weight: 139 lb 5.314 oz Body Mass Index (BMI) 21.2 Intake and Output for Last 24 Hours 06/05/20 06/06/20 06/07/20 23:59 23:59 23:59 Intake Total Output Total 325 / 325 Balance -315 / -315 General: Alert, Oriented x3, Cooperative, No apparent distress HEENT: Atraumatic, PERRLA, Normocephalic, - - There is some mild swelling in the left anterior neck/submandibular region Oral: - - No significant oropharyngeal or tongue swelling noted. Neck: Supple, No Nodes, Trachea Midline Lungs: Normal air movement Cardiovascular: Regular rate, Regular Rhythm Abdomen: Bowel Sounds Present, Soft, Non Tender Extremities: No clubbing, No cyanosis, No edema Skin: No breakdown Musculoskeletal: No Tenderness to Palpation of Joints or Extremities, No Muscle Wasting Lymphatic: No Cervical, Supraclavicular, or Inguinal Adenopathy Neurological: Cranial nerves II-XII grossly intact, Neuro grossly intact Psych/Mental Status: Alert and oriented to time, place, person, mood and affect Labs (Last 48 Hours) 06/07/20 06/07/20 06/07/20 01:50 01:50 05:41 WBC 8.0 RBC 4.17 L Hgb 13.0 Hct 41.5 MCV 99.5 H MCH 31.2 MCHC 31.3 L RDW Std Deviation 50.3 H RDW Coeff of Juan Manuel 13.9 Plt Count 304 MPV 10.1 Immature Gran % (Auto) 0.300 Neut % (Auto) 57.0 Lymph % (Auto) 28.3 [place] % (Auto) 11.8 H Eos % (Auto) 1.8 Baso % (Auto) 0.8 Absolute Neuts (auto) 4.6 Absolute Lymphs (auto) 2.26 Nucleated RBC % 0 Sodium 141 Potassium 4.1 Chloride 107 Carbon Dioxide 29.0 Anion Gap 5 BUN 16 Creatinine 1.09 Estim Creat Clear Calc 54.81 Est GFR (MDRD) Af Amer 85 Est GFR (MDRD) Non-Af 70 BUN/Creatinine Ratio 14.7 Glucose 129 H Calcium 9.2 POC Glucose 198 H Current Medications Acetaminophen (Acetaminophen 650 Mg Suppository) 650 mg RECTAL Q4H PRN PRN PRN Reason: Pain Score 1-10/Temp > 100.7 F Albuterol Sulfate (Albuterol 2.5 Mg/3 Ml Vial.Neb.) 2.5 mg INHALATION Q2H PRN PRN PRN Reason: Dyspnea, wheezing Diphenhydramine HCl (Diphenhydramine 50 Mg/Ml Syringe) 25 mg IV Q6 [facility] Last Admin: 06/07/20 05:44 Dose: 25 mg Documented by: Enoxaparin Sodium (Enoxaparin 40 Mg/0.4 Ml Syringe) 40 mg SC DAILY [facility] Hydralazine HCl (Hydralazine 20 Mg/Ml Vial) 10 mg IV Q4H PRN PRN PRN Reason: SBP > 160 Sodium Chloride () 1,000 mls @ 100 mls/hr IV .Q10H [facility] Last Admin: 06/07/20 04:04 Dose: 100 mls/hr Documented by: Famotidine 20 mg/ Sodium (Chloride) 10 mls @ 300 mls/hr IV Q12 DERRICK Sodium Chloride () 250 mls @ 15 mls/hr IV .[id number] PRN PRN Reason: Saline Flush Insulin Human Lispro (Insulin Lispro 100 Unit/Ml Insuln.Pen) 0 unit SC Q6 DERRICK; Protocol Last Admin: 06/07/20 05:43 Dose: 2 u Documented by: Methylprednisolone (Methylprednisolone 40 Mg/Ml Vial) 40 mg IV Q8 DERRICK Morphine Sulfate (Morphine 2 Mg/Ml Syringe) 2 mg IV Q3H PRN PRN PRN Reason: Pain Score 6-10 Ondansetron HCl (Ondansetron 4 Mg/2 Ml Vial) 4 mg IV Q8H PRN PRN PRN Reason: NAUSEA/VOMITING Prochlorperazine Edisylate (Prochlorperazine 10 Mg/2 Ml Vial) 5 mg IV Q4H PRN PRN PRN Reason: Breakthrough Nausea/Vomiting Sodium Chloride (0.9% Saline Lock 10 Ml Syringe) 10 - 40 ml IV UD PRN PRN Reason: SALINE FLUSH Assessment/Plan Active and Suspected Problems Angioedema (Acute) RECOMMENDATIONS: 1. Stop continuous supplemental IV fluids. 2. Continue Pepcid and Benadryl today. 3. We will continue steroids yet today with plans to discontinue tomorrow. 4. Okay to advance diet. 5. The patient is medically stable for transfer out of the intensive care unit. IMPRESSIONS: 1. Angioedema Potentially related to use of MICHELLE inhibitor. No other clear precipitating etiology identified. The patient denies any swallowing difficulties. He is able to handle his secretions and his airway remains intact. We will plan to continue current supportive measures with Pepcid, Benadryl and steroids today. These medications can likely be discontinued tomorrow. Discontinue lisinopril indefinitely. 2. Hypertension/hyperlipidemia/diabetes mellitus/BPH Complicates care, management, recovery and prognosis. Okay to continue home medications as indicated, with the exception of lisinopril. This note was generated with [employer] dictation software. It may contain incorrect words, spelling, and punctuation that were not noted in checking the note before signing. Inpatient E&M: 20727 Init Hosp L3
--- NOTE | 2020-06-07 08:03 | NURSING ---
No change in pt's swollen tongue. Pt feels that it is improved as well.
--- NOTE | 2020-06-07 09:36 | PCM.DC ---
- Discharge Diagnoses Current Active Problems: Current Active and Chronic Problems Hypertension (Chronic) Hyperlipidemia (Chronic) Type 2 diabetes mellitus (Chronic) BPH (benign prostatic hyperplasia) (Chronic) Angioedema (Acute) You will use the following diet at home:: Calorie/Carbohydrate Controlled (specify 1200, 1400, etc) - RESUME YOUR HOME DIET Your food should be the consistency of: Regular Your liquids should be the consistency of: Regular/Thin Discharge Activity: Return to Normal Activity Weight Bearing Status: Full weight bearing Additional Instructions: rETURN TO EMERGENCY ROOM IF YOU NOTICE INCREASED LIP OR TONGUE SWELLING OR HAVE TROUBLE SWALLOWING OR BREATHING YOU MAY TAKE OVER THE COUNTER BENADRYL 25 MG EVERY 6 HOURS FOR THE NEXT 48 HRS IF YOU WANT Allergies/Adverse Reactions: Allergies lisinopril Allergy (Verified 06/07/20 03:07) Angioedema Medications to take at Discharge Finasteride [Proscar] 5 mg PO DAILY 05/16/20 Gabapentin [Neurontin] 100 mg PO DAILY 05/16/20 Pioglitazone [Actos] 30 mg PO DAILY 05/16/20 Rosuvastatin Calcium [Crestor] 40 mg PO QHS 05/16/20 metFORMIN (XR) [Glucophage Xr] 500 mg PO BID 05/16/20 MethylPREDNISolone DosePak [Medrol DosePak] 4 mg PO UD #1 box 06/07/20 The following prescriptions were given: MethylPREDNISolone DosePak [Medrol DosePak] 4 mg PO UD #1 box Transmission Status: Pending to [facility]/pharmacy #[id number] Primary Care Physician: Tigre Ortiz Chi, MD [Primary Care Provider] - Please follow up with your Primary Care Physician in: IN 1-2 WEEKS Test Results: Test results from this visit will be discussed in further detail at your follow-up appointment, if applicable.
--- NOTE | 2020-06-07 10:13 | CASEMGMT ---
RN CM Assessment Note Chart review assessment. Per nursing, patient is independent, feeling improved and stated he was going to [employer] today. No dc concerns noted. Diagnosis: angioedema PCP: Dr. Ortiz Insurance: [facility] Preferred Pharmacy: [facility], [facility] Prescription Benefit: yes LNOK: Friend, Jonathan Hummel listed Living Arrangements: Lives independently Tranportation: drives Patient DC Goals: Home DC Plan: Home on discharge. No concerns were noted. Patient is ambulatory and independent. Hafsa ARORA RN ACM
--- NOTE | 2020-06-08 15:39 | DS.PCM_ITS ---
Discharge Date and Diagnosis - Problem List Patient Problems: Active and Suspected Problems Angioedema (Acute) Date of Admission: 06/07/20 Date of Discharge: 06/07/20 - Primary Discharge Diagnosis Acute Problems: Active Problems #1 Angioedema (Acute) secondary to lisinopril usage #2 type 2 diabetes #3 hyperlipidemia - Secondary Discharge Diagnosis Chronic Problems: Chronic Problems Hypertension (Chronic) Hyperlipidemia (Chronic) Type 2 diabetes mellitus (Chronic) BPH (benign prostatic hyperplasia) (Chronic) Hospital Course and Treatment Operations: None Procedures: None Summary of Care Provided: The patient is a 74 year old M seen in the emergency room at [facility] with chief complaint of swallowing difficulties due to a swollen tongue. He denied any breathing difficulties. Patient had a similar incident 2 months prior but it was just part of his tongue and it went away on its own. Patient was currently on lisinopril as an outpatient. Work-up in the emergency room included labs which showed a normal CBC and a normal chemistry panel. By examination the patient was felt to have acute angioedema from his lisinopril. Patient was admitted to ICU, placed on IV Solu-Medrol and given IV Benadryl and Pepcid. Patient symptoms improved rapidly and he was reevaluated on 06/07/2020 around 10 AM. Patient was able eat breakfast without difficulty was having no breathing difficulties. On examination he appeared in good health and spirits. Vital signs as documented. Skin warm and dry and without overt rashes. Patient had minimal swelling of the his upper lip and tongue. Neck without JVD, neck was supple, trachea midline, thyroid was normal. Lungs clear bilaterally, normal air movement was noted. Heart exam notable for regular rhythm, normal sounds and absence of murmurs, rubs or gallops. Abdomen unremarkable and without evidence of organomegaly, masses, or abdominal aortic enlargement. Bowel sounds are present, abdomen is not distended. Extremities nonedematous, no cyanosis was noted, no clubbing was noted. Neuro: Cranial nerves II through XII are grossly intact, no focal motor deficits were noted, sensation to light touch and pinprick intact, motor exam 5/5 throughout. Psych: Patient is alert and oriented x3, he does not appear anxious or depressed, he does not appear agitated. It was felt that the patient could be safely discharged home, he was discharged home on 06/07/2020. Patient Problems: Active and Suspected Problems Angioedema (Acute) - Physical Exam Vitals/I&O's: Vital Signs Temp Pulse Resp BP Pulse Ox 97.9 F 82 24 H 114/59 L 98 06/07/20 08:00 06/07/20 10:00 06/07/20 10:00 06/07/20 10:00 06/07/20 10:00 Oxygen Delivery Method Room Air Weight: 63.2 kg Body Mass Index (BMI) 21.2 Intake and Output for Last 24 Hours 06/06/20 06/07/20 06/08/20 23:59 23:59 23:59 Intake Total 541.67 / 541.67 Output Total 625 / 625 Balance -83.33 / -83.33 Discharge Activity: Return to Normal Activity Weight Bearing Status: Full weight bearing Home Medications: Medications to take at Discharge Finasteride [Proscar] 5 mg PO DAILY 05/16/20 Gabapentin [Neurontin] 100 mg PO DAILY 05/16/20 Pioglitazone [Actos] 30 mg PO DAILY 05/16/20 Rosuvastatin Calcium [Crestor] 40 mg PO QHS 05/16/20 metFORMIN (XR) [Glucophage Xr] 500 mg PO BID 05/16/20 MethylPREDNISolone DosePak [Medrol DosePak] 4 mg PO UD #1 box 06/07/20 Following Prescriptions Were Given to Patient: MethylPREDNISolone DosePak [Medrol DosePak] 4 mg PO UD #1 box Transmission Status: Received by [facility]/pharmacy #[id number] Primary Care Physician: Tigre Ortiz Chi, MD [Primary Care Provider] - Please follow up with your Primary Care Physician in: IN 1-2 WEEKS Disposition: Home Minutes spent on discharge:: 31 Patient Condition:: Stable Medical Necessity - Tobacco Use Smoking Status: Never smoker Tobacco Use: Non-smoker Meaningful Use Info Meaningful Use Diagnoses (Choose all that apply): None applicable Inpatient E&M: 81625 Disch Hosp
== END 2020-06-07 10:55 | disposition home or self-care (01) | DRG 916 ==
LOC: ED 02:40 → ICU 03:10
PROVIDERS: Admitting Provider Family Medicine; Emergency Provider Emergency Medicine; PCP Family Medicine Geriatric Medicine; Visit Provider Internal Medicine
DX: T78.3XXA Angioneurotic edema, initial encounter (principal); T46.4X5A Adverse effect of angiotensin-converting-enzyme inhibitors, initial encounter; E11.42 Type 2 diabetes mellitus with diabetic polyneuropathy; E78.5 Hyperlipidemia, unspecified; I10 Essential (primary) hypertension; N40.0 Benign prostatic hyperplasia without lower urinary tract symptoms; R13.10 Dysphagia, unspecified; Z86.19 Personal history of other infectious and parasitic diseases; Z79.899 Other long term (current) drug therapy; Z79.84 Long term (current) use of oral hypoglycemic drugs
CPT/HCPCS: 80048; 82962; 85025; 99284; J7030; A4216; J1290; J3490

== ENCOUNTER → 2020-06-29 15:40 | Outpatient (CLI) | payer MEDICARE, OTHER, SELFPAY ==
[2020-06-07 03:27] VITALS: BMI 21.2
[2020-06-29 17:41] LABS: Absolute Lymphocyte Count 1.41 X10^3/uL (0.83-4.51); Absolute Neutrophil Count 3.9 X10^3/uL (2.0-7.7); Basophil# 0.05 X10^3/uL; Basophil% 0.8 % (0-1); Eosinophil# 0.18 X10^3/uL; Hematocrit 39.5 % (40-54); Hemoglobin 12.8 g/dL (13.0-16.5); Lymphocyte # 1.41 X10^3/ul (4.0); Lymphocyte % 23.2 % (19-41); Mean Corp Hgb Conc 32.4 g/dL (32-36); Mean Corpuscular Hgb 32.1 pg (27.0-32.0); Mean Platelet Vol. 10.4 fl (6.2-12.0); Monocyte% 8.2 % (0-10); NRBC Flagged by Analyzer 0 % (0-5); Neutrophil # 3.91 X10^3/uL (2.7-7.7); Neutrophil % 64.5 % (47-70); Platelet Count 317 K/mm3 (150-450); RBC Distribution Width CV 13.5 % (11.6-14.6); RBC Distribution Width SD 49.8 fl (35.1-43.9); Red Blood Count 3.99 M/mm3 (4.6-6.2); White Blood Count 6.1 K/mm3 (4.4-11.0)
[2020-06-29 17:56] LABS: Vitamin D,25 Hydroxy 39.1 ng/mL
[2020-06-29 18:04] LABS: AST(SGOT) 20 U/L (15-37); Alanine Aminotransfer ALT/SGPT 31 U/L (16-61); Albumin, Serum 3.6 g/dL (3.2-5.0); Alkaline Phosphatase 98 U/L (45-117); Anion Gap 4 (5-15); BUN 17 mg/dL (7-18); BUN/Creat Ratio 14.9 RATIO (10-20); Chloride 103 mmol/L (98-107); Creatinine, Serum 1.14 mg/dL (0.70-1.30); EST Glomerular Filtration Rate 67 mL/min (>60); Est Glom Filt Rate - Afr Amer 81 mL/min (>60); Globulin 3.7 g/dL (2.2-4.2); Glucose 215 mg/dL (74-106); Protein, Total 7.3 g/dL (6.4-8.2); Sodium Level 139 mmol/L (136-145); Thyroid Stim Hormone (TSH) 1.42 uIU/mL (0.358-3.74)
== END ==
PROVIDERS: PCP Family Medicine Geriatric Medicine; Visit Provider Family Medicine Geriatric Medicine
DX: I10 Essential (primary) hypertension (principal); E11.9 Type 2 diabetes mellitus without complications; E55.9 Vitamin D deficiency, unspecified; F52.8 Other sexual dysfunction not due to a substance or known physiological condition
CPT/HCPCS: 36415; 80053; 82306; 84403; 84443; 85025

== ENCOUNTER → 2020-08-22 | Outpatient (CLI) | payer MEDICARE, OTHER, SELFPAY ==
[2020-06-07 03:27] VITALS: BMI 21.2
== END | disposition home or self-care (01) ==
LOC: LABSPEC 14:21
PROVIDERS: PCP Family Medicine Geriatric Medicine; Visit Provider Family Medicine Geriatric Medicine
DX: R81 Glycosuria (principal)
CPT/HCPCS: 87086

== ENCOUNTER → 2020-10-05 14:55 | Outpatient (CLI) | payer MEDICARE, OTHER, SELFPAY ==
[2020-06-07 03:27] VITALS: BMI 21.2
[2020-10-05 16:24] LABS: Absolute Lymphocyte Count 1.69 X10^3/uL (0.83-4.51); Absolute Neutrophil Count 4.1 X10^3/uL (2.0-7.7); Basophil# 0.05 X10^3/uL; Basophil% 0.8 % (0-1); Eosinophil# 0.04 X10^3/uL; Eosinophils% 0.6 % (0-5); Hematocrit 47.1 % (40-54); Hemoglobin 14.9 g/dL (13.0-16.5); Lymphocyte # 1.69 X10^3/ul (4.0); Lymphocyte % 26.2 % (19-41); Mean Corp Hgb Conc 31.6 g/dL (32-36); Mean Corpuscular Hgb 30.5 pg (27.0-32.0); Mean Corpuscular Volume 96.3 fL (80-94); Mean Platelet Vol. 10.8 fl (6.2-12.0); Monocyte# 0.52 X10^3/uL; Monocyte% 8.1 % (0-10); NRBC Flagged by Analyzer 0 % (0-5); Neutrophil # 4.14 X10^3/uL (2.7-7.7); Neutrophil % 64.1 % (47-70); Platelet Count 257 K/mm3 (150-450); RBC Distribution Width CV 12.5 % (11.6-14.6); RBC Distribution Width SD 44.5 fl (35.1-43.9); Red Blood Count 4.89 M/mm3 (4.6-6.2); White Blood Count 6.5 K/mm3 (4.4-11.0)
[2020-10-05 16:53] LABS: Vitamin D,25 Hydroxy 52.9 ng/mL
[2020-10-05 17:00] LABS: ALB/GLOB Ratio 1.1 RATIO (0.9-2.4); AST(SGOT) 29 U/L (15-37); Alanine Aminotransfer ALT/SGPT 40 U/L (16-61); Alkaline Phosphatase 77 U/L (45-117); Anion Gap 5 (5-15); BUN 18 mg/dL (7-18); BUN/Creat Ratio 14.4 RATIO (10-20); Calcium,Total 9.3 mg/dL (8.5-10.1); Chloride 104 mmol/L (98-107); Creatinine, Serum 1.25 mg/dL (0.70-1.30); EST Glomerular Filtration Rate 60 mL/min (>60); Est Glom Filt Rate - Afr Amer 73 mL/min (>60); Globulin 3.8 g/dL (2.2-4.2); Glucose 115 mg/dL (74-106); Potassium 3.8 mmol/L (3.5-5.1); Protein, Total 7.8 g/dL (6.4-8.2); Sodium Level 141 mmol/L (136-145); Thyroid Stim Hormone (TSH) 1.16 uIU/mL (0.358-3.74)
== END ==
PROVIDERS: PCP Family Medicine Geriatric Medicine; Visit Provider Family Medicine Geriatric Medicine
DX: E11.9 Type 2 diabetes mellitus without complications (principal); E55.9 Vitamin D deficiency, unspecified; F52.8 Other sexual dysfunction not due to a substance or known physiological condition; I10 Essential (primary) hypertension
CPT/HCPCS: 36415; 80053; 82306; 84403; 84443; 85025

== ENCOUNTER → 2021-04-05 16:52 | Outpatient (CLI) | payer MEDICARE, OTHER, SELFPAY ==
[2021-04-05 17:21] LABS: Absolute Lymphocyte Count 1.65 X10^3/uL (0.83-4.51); Absolute Neutrophil Count 3.9 X10^3/uL (2.0-7.7); Basophil# 0.04 X10^3/uL; Basophil% 0.7 % (0-1); Eosinophils% 1.6 % (0-5); Hemoglobin 14.7 g/dL (13.0-16.5); Lymphocyte # 1.65 X10^3/ul (0.83-4.51); Mean Corp Hgb Conc 32.7 g/dL (32-36); Mean Corpuscular Hgb 31.7 pg (27.0-32.0); Mean Platelet Vol. 10.4 fl (6.2-12.0); Monocyte# 0.44 X10^3/uL; Monocyte% 7.2 % (0-10); NRBC Flagged by Analyzer 0 % (0-5); Neutrophil # 3.87 X10^3/uL (2.7-7.7); Neutrophil % 63.3 % (47-70); Platelet Count 230 K/mm3 (150-450); RBC Distribution Width CV 12.7 % (11.6-14.6); RBC Distribution Width SD 45.7 fl (35.1-43.9); Red Blood Count 4.64 M/mm3 (4.6-6.2); White Blood Count 6.1 K/mm3 (4.4-11.0)
[2021-04-05 17:55] LABS: Vitamin D,25 Hydroxy 50.9 ng/mL
[2021-04-05 18:03] LABS: ALB/GLOB Ratio 0.9 RATIO (0.9-2.4); AST(SGOT) 23 U/L (15-37); Alanine Aminotransfer ALT/SGPT 33 U/L (16-61); Albumin, Serum 3.6 g/dL (3.2-5.0); Alkaline Phosphatase 74 U/L (45-117); Anion Gap 6 (5-15); BUN 18 mg/dL (7-18); BUN/Creat Ratio 14.8 RATIO (10-20); Calcium,Total 8.9 mg/dL (8.5-10.1); Chloride 106 mmol/L (98-107); Creatinine, Serum 1.22 mg/dL (0.70-1.30); EST Glomerular Filtration Rate 62 mL/min (>60); Est Glom Filt Rate - Afr Amer 75 mL/min (>60); Globulin 3.9 g/dL (2.2-4.2); Glucose 122 mg/dL (74-106); Potassium 3.6 mmol/L (3.5-5.1); Protein, Total 7.5 g/dL (6.4-8.2); Sodium Level 140 mmol/L (136-145); Thyroid Stim Hormone (TSH) 1.55 uIU/mL (0.358-3.74)
== END ==
PROVIDERS: PCP Family Medicine Geriatric Medicine; Visit Provider Family Medicine Geriatric Medicine
DX: I10 Essential (primary) hypertension (principal); E11.9 Type 2 diabetes mellitus without complications; E55.9 Vitamin D deficiency, unspecified; F52.8 Other sexual dysfunction not due to a substance or known physiological condition
CPT/HCPCS: 36415; 80053; 82306; 84403; 84443; 85025

== ENCOUNTER 2021-10-11 15:25 | Outpatient (CLI) | payer MEDICARE, OTHER, SELFPAY ==
[2021-10-11 17:16] LABS: Absolute Lymphocyte Count 1.37 X10^3/uL (0.83-4.51); Absolute Neutrophil Count 4.2 X10^3/uL (2.0-7.7); Basophil# 0.05 X10^3/uL; Basophil% 0.8 % (0-1); Eosinophil# 0.06 X10^3/uL; Hematocrit 45.6 % (40-54); Hemoglobin 15.3 g/dL (13.0-16.5); Lymphocyte # 1.37 X10^3/ul (0.83-4.51); Lymphocyte % 22.3 % (19-41); Mean Corp Hgb Conc 33.6 g/dL (32-36); Mean Corpuscular Hgb 32.3 pg (27.0-32.0); Mean Corpuscular Volume 96.4 fL (80-94); Mean Platelet Vol. 10.5 fl (6.2-12.0); Monocyte# 0.46 X10^3/uL; Monocyte% 7.5 % (0-10); NRBC Flagged by Analyzer 0 % (0-5); Neutrophil # 4.17 X10^3/uL (2.7-7.7); Neutrophil % 68.1 % (47-70); Platelet Count 246 K/mm3 (150-450); RBC Distribution Width CV 12.9 % (11.6-14.6); RBC Distribution Width SD 45.8 fl (35.1-43.9); Red Blood Count 4.73 M/mm3 (4.6-6.2); White Blood Count 6.1 K/mm3 (4.4-11.0)
[2021-10-11 17:21] LABS: ALB/GLOB Ratio 1.1 RATIO (0.9-2.4); AST(SGOT) 22 U/L (15-37); Alanine Aminotransfer ALT/SGPT 35 U/L (16-61); Albumin, Serum 3.9 g/dL (3.2-5.0); Alkaline Phosphatase 70 U/L (45-117); Anion Gap 2 (5-15); BUN 19 mg/dL (7-18); BUN/Creat Ratio 15.6 RATIO (10-20); Calcium,Total 9.4 mg/dL (8.5-10.1); Chloride 103 mmol/L (98-107); Creatinine, Serum 1.22 mg/dL (0.70-1.30); EST Glomerular Filtration Rate 62 mL/min (>60); Est Glom Filt Rate - Afr Amer 74 mL/min (>60); Globulin 3.7 g/dL (2.2-4.2); Glucose 176 mg/dL (74-106); Potassium 4.6 mmol/L (3.5-5.1); Protein, Total 7.6 g/dL (6.4-8.2); Sodium Level 137 mmol/L (136-145); Thyroid Stim Hormone (TSH) 1.22 uIU/mL (0.358-3.74)
== END 2021-10-11 23:59 | disposition home or self-care (01) ==
LOC: POLAB3 15:32
PROVIDERS: PCP Family Medicine Geriatric Medicine; Visit Provider Family Medicine Geriatric Medicine
DX: E11.9 Type 2 diabetes mellitus without complications (principal); E55.9 Vitamin D deficiency, unspecified; F52.8 Other sexual dysfunction not due to a substance or known physiological condition; I10 Essential (primary) hypertension
CPT/HCPCS: 36415; 80053; 82306; 84403; 84443; 85025

== ENCOUNTER → 2022-04-19 | Outpatient (CLI) | payer MEDICARE, OTHER, SELFPAY ==
[2022-04-19 10:22] LABS: Absolute Lymphocyte Count 1.16 X10^3/uL (0.83-4.51); Absolute Neutrophil Count 3.8 X10^3/uL (2.0-7.7); Basophil# 0.04 X10^3/uL; Basophil% 0.7 % (0-1); Eosinophils% 1.8 % (0-5); Hematocrit 47.8 % (40-54); Hemoglobin 15.7 g/dL (13.0-16.5); Lymphocyte # 1.16 X10^3/ul (0.83-4.51); Lymphocyte % 20.9 % (19-41); Mean Corp Hgb Conc 32.8 g/dL (32-36); Mean Corpuscular Hgb 31.7 pg (27.0-32.0); Mean Corpuscular Volume 96.6 fL (80-94); Mean Platelet Vol. 10.1 fl (6.2-12.0); Monocyte% 7.2 % (0-10); NRBC Flagged by Analyzer 0 % (0-5); Neutrophil # 3.84 X10^3/uL (2.7-7.7); Platelet Count 227 K/mm3 (150-450); RBC Distribution Width CV 12.6 % (11.6-14.6); RBC Distribution Width SD 44.6 fl (35.1-43.9); Red Blood Count 4.95 M/mm3 (4.6-6.2); White Blood Count 5.6 K/mm3 (4.4-11.0)
[2022-04-19 10:53] LABS: Vitamin D,25 Hydroxy 50.6 ng/mL
[2022-04-19 11:10] LABS: ALB/GLOB Ratio 0.9 RATIO (0.9-2.4); AST(SGOT) 38 U/L (15-37); Alanine Aminotransfer ALT/SGPT 40 U/L (16-61); Albumin, Serum 3.9 g/dL (3.2-5.0); Alkaline Phosphatase 85 U/L (45-117); Anion Gap 8 (5-15); BUN 20 mg/dL (7-18); BUN/Creat Ratio 17.5 RATIO (10-20); Calcium,Total 9.2 mg/dL (8.5-10.1); Chloride 103 mmol/L (98-107); Creatinine, Serum 1.14 mg/dL (0.70-1.30); EST Glomerular Filtration Rate 66 mL/min (>60); Est Glom Filt Rate - Afr Amer 80 mL/min (>60); Globulin 4.2 g/dL (2.2-4.2); Glucose 95 mg/dL (74-106); Potassium 4.1 mmol/L (3.5-5.1); Protein, Total 8.1 g/dL (6.4-8.2); Sodium Level 140 mmol/L (136-145); Thyroid Stim Hormone (TSH) 1.58 uIU/mL (0.358-3.74)
== END | disposition home or self-care (01) ==
LOC: LAB 09:49
PROVIDERS: PCP Family Medicine Geriatric Medicine; Referring Provider Family Medicine Geriatric Medicine; Visit Provider Family Medicine Geriatric Medicine
DX: E11.9 Type 2 diabetes mellitus without complications (principal); E55.9 Vitamin D deficiency, unspecified; I10 Essential (primary) hypertension; F52.8 Other sexual dysfunction not due to a substance or known physiological condition
CPT/HCPCS: 36415; 80053; 82306; 84403; 84443; 85025

== ENCOUNTER 2022-04-27 02:56 | Emergency (ER) | payer MEDICARE, OTHER, SELFPAY ==
[2022-04-27 02:57] VITALS: BP 153/83; PULSE 70; RESP 18; TEMP 36.6; O2SAT 98; BMI 24.3
--- NOTE | 2022-04-27 03:22 | EDS_ITS ---
HPI History of Present Illness Chief Complaint: Allergic Reaction Informant: patient Narrative Narrative: Patient states that he has some swelling of the left side of his tongue. He also has some erythema rash itching and swelling of his right wrist area. He is not sure if he got bit by something. 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 But he has been off MICHELLE inhibitors and is not taking any angiotensin receptor robbin meds. No new medications. He has seen the dentist twice this week. He had a little bit of the swelling Friday after seeing them and then he saw them earlier in the day and the ground down the tooth on his lef t and now he has left-sided swelling. He had a filling done on the right earlier and had right-sided swelling earlier in the week that resolved. But he is not short of breath. PFSH PFSH Home Medications finasteride 5 mg tablet 5 mg PO DAILY 05/16/20 [History Last Taken Unknown] gabapentin 100 mg capsule 100 mg PO DAILY 05/16/20 [History Last Taken Unknown] metformin 500 mg tablet,extended release 24 hr 500 mg PO BID 05/16/20 [History Last Taken Unknown] pioglitazone 30 mg tablet 30 mg PO DAILY 05/16/20 [History Last Taken Unknown] rosuvastatin 40 mg tablet 40 mg PO QHS 05/16/20 [History Last Taken Unknown] methylprednisolone 4 mg tablets in a dose pack 4 mg PO UD ##1 06/07/20 [Rx Last Taken Unknown] prednisone 20 mg tablet 40 mg PO DAILY #8 tabs 04/27/22 [Rx Last Taken Unknown] Allergy/AdvReac Type Severity Reaction Status Date / Time lisinopril Allergy Angioedema Verified 06/07/20 03:07 Social History Smoking Status: Never smoker ROS ROS ED Constitutional Constitutional ED: Denies chills or fever(s) Eyes Eyes: Denies blurry vision ENT ENT ED: Reports other Details: See history of present Cardiovascular Cardiovascular: Denies chest pain or palpitations Respiratory/Chest Respiratory/Chest: Denies cough or dyspnea Gastrointestinal Gastrointestinal: Denies abdominal pain, nausea or vomiting Musculoskeletal Musculoskeletal: Denies arthralgias Integumentary Reports rash Neurologic Neurologic: Denies headache(s), paresthesias or weakness Endocrine Endocrinology: Denies cold intolerance or heat intolerance Hematologic/Lymphatic Hematologic/Lymphatic: Denies easy bleeding or easy bruising Allergic/Immunologic Allergic/Immunologic ED: Reports tongue swelling and urticaria EXAM Physical Exam Const Vital Signs: 04/27/22 02:57 Temperature 98 F Temperature Source Temporal Pulse Rate 70 Respiratory Rate 18 Blood Pressure 153/83 H Blood Pressure Mean 106 Pulse Ox 98 Oxygen Delivery Method Room Air Positive well nourished and well developed General Appearance ED: well developed and NAD HEENT Reports moist mucous membranes HEENT Narrative: Patient does have a little bit of swelling in the left side of his tongue. His speech is normal. He handles secretions well. Breathing is comfortable. Eyes EOMs intact bilaterally Neck no lymphadenopathy and no JVD Neck Narrative: No stridor Chest Wall inspection of chest normal Resp normal respiratory effort and clear to auscultation bilaterally Auscultation: Negative for wheezes Cardio regular rate, regular rhythm and no murmurs GI normal to inspection, nondistended, normoactive bowel sounds Back/Spine no CVA tenderness Extremity Extremity Narrative: Patient does have some swelling erythema and what appears to be a hive to the right wrist and a little bit of the proximal palm. I do not see a bite aruna but there is a central area that is a bit raised. I do not see any other rashes on him. Skin Skin Narrative: See above. MDM MDM MDM Narrative Medical decision making narrative: Patient's recheck. He is doing markedly better. The tongue is down to almost normal. The hives on his right wrist area is also down to almost gone. He is asymptomatic. It is unclear if he may have been exposed to something at the dental office that initiated this. He was concerned he may have been bitten by something in the right wrist and that certainly possible. He is not on an MICHELLE or ARB. We will get him home on about 5 days of prednisone. He will take Claritin and Pepcid once a day also. Discharge Plan Triage Chief Complaint: Allergic Reaction Other Complaint: Dental ED Provider: Freddie Jasmine Dx/Rx/DC Orders Clinical Impression: Angioedema, Allergic reaction Instructions: ED Angioedema Prescriptions: New prednisone 20 mg tablet 40 mg PO DAILY Qty: 8 0RF No Action gabapentin 100 MG capsule 100 mg PO DAILY pioglitazone 30 MG tablet 30 mg PO DAILY metformin 500 MG tablet 500 mg PO BID finasteride 5 MG tablet 5 mg PO DAILY rosuvastatin 40 MG tablet 40 mg PO QHS methylprednisolone 4 MG tablet 4 mg PO UD Qty: 1 0RF Rx Instructions: START ON 06/07/20 Primary Care Provider: Tigre Ortiz Chi Referrals: Tigre Ortiz Chi, MD [Primary Care Provider] - 3-5 Days if not improving Activity Restrictions/Additional Instructions: The prednisone will raise your sugar for several days but should come back to baseline when the prednisone is stopped Disposition Disposition: Home, Self Care
[2022-04-27] MEDS: DiphenhydrAMINE 50 MG/ML Syringe IV (03:45)
[2022-04-27] MEDS: MethylPREDNISolone 125 MG/2 ML Vial IV (03:45)
[2022-04-27] MEDS: Famotidine 200 MG/20 ML MDV 20 MG in 0.9% Normal Saline (Pres. free 8 ML 300 MG IV (03:48)
[2022-04-27 05:48] VITALS: BP 144/84; PULSE 64; PULSE 66; RESP 14; RESP 18; TEMP 36.6; O2SAT 100; O2SAT 98
== END 2022-04-27 05:50 | disposition home or self-care (01) ==
PROVIDERS: Emergency Provider Emergency Medicine; PCP Family Medicine Geriatric Medicine; Visit Provider Emergency Medicine
DX: T78.3XXA Angioneurotic edema, initial encounter (principal); X58.XXXA Exposure to other specified factors, initial encounter
CPT/HCPCS: 96374; 96375; 99283; A4216; J3490

== ENCOUNTER → 2022-05-20 | Outpatient (CLI) | payer MEDICARE, OTHER, SELFPAY ==
[2022-05-20 19:27] LABS: Chlamydia Trachomatis by PCR Negative (Negative); Neisserai gonorrhoeae by PCR Negative (Negative); Probe Check PASS; Sample Adequacy Control PASS; Specimen Processing Control PASS
[2022-05-21 11:14] LABS: HIV - WCH Non-Reactive (Nonreactive); Syphilis Antibodies Non-reactive
== END | disposition home or self-care (01) ==
PROVIDERS: PCP Family Medicine Geriatric Medicine; Visit Provider Family Medicine Geriatric Medicine
DX: N48.89 Other specified disorders of penis (principal)
CPT/HCPCS: 36415; 86703; 86780; 87070; 87077; 87205; 87255; 87491; 87591

== ENCOUNTER → 2022-06-05 | Outpatient (CLI) | payer MEDICARE, OTHER, SELFPAY ==
[2022-06-12 04:07] LABS: Almond <0.10 kU/L (Class 0); Apple <0.10 kU/L (Class 0); Banana 0.12 kU/L (Class 0/I); Barley, Whole Grain <0.10 kU/L (Class 0); Beef <0.10 kU/L (Class 0); Brazil Nut <0.10 kU/L (Class 0); Cashew <0.10 kU/L (Class 0); Chicken <0.10 kU/L (Class 0); Clam <0.10 kU/L (Class 0); Codfish <0.10 kU/L (Class 0); Crab 0.43 kU/L (Class I); Egg, White <0.10 kU/L (Class 0); Egg, Whole <0.10 kU/L (Class 0); Egg, Yolk <0.10 kU/L (Class 0); Garlic <0.10 kU/L (Class 0); Gluten <0.10 kU/L (Class 0); Hazelnut/Filbert <0.10 kU/L (Class 0); Lobster 0.17 kU/L (Class 0/I); Milk (Cow) <0.10 kU/L (Class 0); Oat <0.10 kU/L (Class 0); Onion <0.10 kU/L (Class 0); Orange <0.10 kU/L (Class 0); Pea <0.10 kU/L (Class 0); Pecan <0.10 kU/L (Class 0); Pork <0.10 kU/L (Class 0); Potato, White <0.10 kU/L (Class 0); Rice <0.10 kU/L (Class 0); SESAME SEED 0.13 kU/L (Class 0/I); Salmon <0.10 kU/L (Class 0); Shrimp 0.96 kU/L (Class II); Soybean <0.10 kU/L (Class 0); Strawberry <0.10 kU/L (Class 0); Tomato 0.12 kU/L (Class 0/I); Tuna <0.10 kU/L (Class 0); Walnut, (Food) <0.10 kU/L (Class 0); Wheat <0.10 kU/L (Class 0); Yeast <0.10 kU/L (Class 0)
[2022-06-12 15:01] LABS: Peach <0.10 kU/L (Class 0); Peanut <0.10 kU/L (Class 0)
[2022-06-16 14:41] LABS: Turkey <0.10 kU/L (Class 0)
== END | disposition home or self-care (01) ==
PROVIDERS: PCP Family Medicine Geriatric Medicine; Visit Provider Otolaryngology Otolaryngology/Facial Plastic Surgery
DX: T78.40XA Allergy, unspecified, initial encounter (principal)
CPT/HCPCS: 36415; 86003

== ENCOUNTER → 2022-10-18 | Outpatient (CLI) | payer MEDICARE, OTHER, SELFPAY ==
[2022-10-18 13:56] LABS: Absolute Lymphocyte Count 1.39 X10^3/uL (0.83-4.51); Absolute Neutrophil Count 3.8 X10^3/uL (2.0-7.7); Basophil# 0.06 X10^3/uL; Eosinophil# 0.11 X10^3/uL; Eosinophils% 1.9 % (0-5); Hematocrit 51.7 % (40-54); Hemoglobin 16.4 g/dL (13.0-16.5); Lymphocyte # 1.39 X10^3/ul (0.83-4.51); Lymphocyte % 24.2 % (19-41); Mean Corp Hgb Conc 31.7 g/dL (32-36); Mean Corpuscular Hgb 31.3 pg (27.0-32.0); Mean Corpuscular Volume 98.7 fL (80-94); Mean Platelet Vol. 10.8 fl (6.2-12.0); Monocyte# 0.39 X10^3/uL; Monocyte% 6.8 % (0-10); NRBC Flagged by Analyzer 0 % (0-5); Neutrophil # 3.78 X10^3/uL (2.7-7.7); Neutrophil % 65.9 % (47-70); Platelet Count 269 K/mm3 (150-450); RBC Distribution Width CV 12.7 % (11.6-14.6); Red Blood Count 5.24 M/mm3 (4.6-6.2); White Blood Count 5.7 K/mm3 (4.4-11.0)
[2022-10-18 14:10] LABS: Vitamin D,25 Hydroxy 57.6 ng/mL
[2022-10-18 14:21] LABS: AST(SGOT) 23 U/L (15-37); Alanine Aminotransfer ALT/SGPT 41 U/L (16-61); Albumin, Serum 4.1 g/dL (3.2-5.0); Alkaline Phosphatase 71 U/L (45-117); Anion Gap 8 (5-15); BUN 27 mg/dL (7-18); BUN/Creat Ratio 22.5 RATIO (10-20); Calcium,Total 10.2 mg/dL (8.5-10.1); Chloride 102 mmol/L (98-107); EST Glomerular Filtration Rate 63 mL/min (>60); Est Glom Filt Rate - Afr Amer 76 mL/min (>60); Globulin 4.2 g/dL (2.2-4.2); Glucose 124 mg/dL (74-106); Potassium 4.3 mmol/L (3.5-5.1); Protein, Total 8.3 g/dL (6.4-8.2); Sodium Level 138 mmol/L (136-145); Thyroid Stim Hormone (TSH) 1.24 uIU/mL (0.358-3.74)
== END | disposition home or self-care (01) ==
LOC: POLAB3 09:41
PROVIDERS: PCP Family Medicine Geriatric Medicine; Visit Provider Family Medicine Geriatric Medicine
DX: E11.9 Type 2 diabetes mellitus without complications (principal); I10 Essential (primary) hypertension; E55.9 Vitamin D deficiency, unspecified; F52.8 Other sexual dysfunction not due to a substance or known physiological condition
CPT/HCPCS: 36415; 80053; 82306; 84403; 84443; 85025

== ENCOUNTER → 2023-02-05 | Outpatient (CLI) | payer MEDICARE, OTHER, SELFPAY ==
[2023-02-05 18:47] LABS: M R Staph aureus DNA By PCR Negative (Negative); Probe Check PASS; Specimen Processing Control PASS
[2023-02-05 18:48] LABS: Staph aureus DNA By PCR NEGATIVE (Negative)
== END | disposition home or self-care (01) ==
LOC: POLAB3 16:22 → LABSPEC 16:22
PROVIDERS: PCP Family Medicine Geriatric Medicine; Visit Provider Family Medicine Geriatric Medicine
DX: L01.00 Impetigo, unspecified (principal); R21 Rash and other nonspecific skin eruption
CPT/HCPCS: 87070; 87077; 87186; 87205; 87640

== ENCOUNTER → 2023-04-18 | Outpatient (CLI) | payer MEDICARE, OTHER, SELFPAY ==
[2023-04-18 10:50] LABS: Absolute Lymphocyte Count 1.32 X10^3/uL (0.83-4.51); Absolute Neutrophil Count 4.1 X10^3/uL (2.0-7.7); Basophil# 0.06 X10^3/uL; Eosinophil# 0.12 X10^3/uL; Hematocrit 46.9 % (40-54); Hemoglobin 15.1 g/dL (13.0-16.5); Lymphocyte # 1.32 X10^3/ul (0.83-4.51); Mean Corp Hgb Conc 32.2 g/dL (32-36); Mean Corpuscular Hgb 31.1 pg (27.0-32.0); Mean Corpuscular Volume 96.5 fL (80-94); Mean Platelet Vol. 10.5 fl (6.2-12.0); Monocyte% 6.7 % (0-10); NRBC Flagged by Analyzer 0 % (0-5); Neutrophil # 4.09 X10^3/uL (2.7-7.7); Neutrophil % 68.1 % (47-70); Platelet Count 272 K/mm3 (150-450); RBC Distribution Width CV 12.6 % (11.6-14.6); RBC Distribution Width SD 45.3 fl (35.1-43.9); Red Blood Count 4.86 M/mm3 (4.6-6.2)
[2023-04-18 11:12] LABS: Vitamin D,25 Hydroxy 58.7 ng/mL
[2023-04-18 11:19] LABS: AST(SGOT) 23 U/L (15-37); Alanine Aminotransfer ALT/SGPT 37 U/L (16-61); Albumin, Serum 3.9 g/dL (3.2-5.0); Alkaline Phosphatase 75 U/L (45-117); Anion Gap 6 (5-15); BUN 22 mg/dL (7-18); BUN/Creat Ratio 17.5 RATIO (10-20); Calcium,Total 9.6 mg/dL (8.5-10.1); Chloride 104 mmol/L (98-107); Creatinine, Serum 1.26 mg/dL (0.70-1.30); EST Glomerular Filtration Rate 59 mL/min (>60); Est Glom Filt Rate - Afr Amer 71 mL/min (>60); Globulin 3.8 g/dL (2.2-4.2); Glucose 171 mg/dL (74-106); Potassium 3.7 mmol/L (3.5-5.1); Protein, Total 7.7 g/dL (6.4-8.2); Sodium Level 138 mmol/L (136-145); Thyroid Stim Hormone (TSH) 1.36 uIU/mL (0.358-3.74)
== END | disposition home or self-care (01) ==
LOC: POLAB3 09:16
PROVIDERS: PCP Family Medicine Geriatric Medicine; Visit Provider Family Medicine Geriatric Medicine
DX: E11.65 Type 2 diabetes mellitus with hyperglycemia (principal); E55.9 Vitamin D deficiency, unspecified; I10 Essential (primary) hypertension
CPT/HCPCS: 36415; 80053; 82306; 84443; 85025

== ENCOUNTER → 2023-10-24 | Outpatient (CLI) | payer MEDICARE, OTHER, SELFPAY ==
[2023-10-24 11:04] LABS: Absolute Lymphocyte Count 1.37 X10^3/uL (0.83-4.51); Absolute Neutrophil Count 4.7 X10^3/uL (2.0-7.7); Basophil# 0.06 X10^3/uL; Basophil% 0.9 % (0-1); Eosinophil# 0.13 X10^3/uL; Hematocrit 45.9 % (40-54); Hemoglobin 14.8 g/dL (13.0-16.5); Lymphocyte # 1.37 X10^3/ul (0.83-4.51); Lymphocyte % 20.7 % (19-41); Mean Corp Hgb Conc 32.2 g/dL (32-36); Mean Corpuscular Hgb 30.8 pg (27.0-32.0); Mean Corpuscular Volume 95.4 fL (80-94); Mean Platelet Vol. 10.8 fl (6.2-12.0); Monocyte# 0.38 X10^3/uL; Monocyte% 5.7 % (0-10); NRBC Flagged by Analyzer 0 % (0-5); Neutrophil # 4.66 X10^3/uL (2.7-7.7); Neutrophil % 70.4 % (47-70); Platelet Count 266 K/mm3 (150-450); RBC Distribution Width CV 12.6 % (11.6-14.6); RBC Distribution Width SD 44.3 fl (35.1-43.9); Red Blood Count 4.81 M/mm3 (4.6-6.2); White Blood Count 6.6 K/mm3 (4.4-11.0)
[2023-10-24 11:17] LABS: Vitamin D,25 Hydroxy 64.5 ng/mL
[2023-10-24 11:45] LABS: AST(SGOT) 26 U/L (15-37); Alanine Aminotransfer ALT/SGPT 29 U/L (16-61); Albumin, Serum 3.9 g/dL (3.2-5.0); Alkaline Phosphatase 83 U/L (45-117); Anion Gap 9 (5-15); BUN 24 mg/dL (7-18); BUN/Creat Ratio 19.4 RATIO (10-20); Calcium,Total 9.6 mg/dL (8.5-10.1); Chloride 103 mmol/L (98-107); Creatinine, Serum 1.24 mg/dL (0.70-1.30); EST Glomerular Filtration Rate 60 mL/min (>60); Est Glom Filt Rate - Afr Amer 73 mL/min (>60); Globulin 3.9 g/dL (2.2-4.2); Glucose 137 mg/dL (74-106); Potassium 3.7 mmol/L (3.5-5.1); Protein, Total 7.8 g/dL (6.4-8.2); Sodium Level 138 mmol/L (136-145); Thyroid Stim Hormone (TSH) 1.67 uIU/mL (0.358-3.74)
[2023-10-24 11:47] LABS: Hemoglobin A1c 7.8 % (3.8-5.6)
== END | disposition home or self-care (01) ==
LOC: POLAB3 09:42
PROVIDERS: PCP Family Medicine Geriatric Medicine; Visit Provider Family Medicine Geriatric Medicine
DX: I10 Essential (primary) hypertension (principal); E11.65 Type 2 diabetes mellitus with hyperglycemia; E55.9 Vitamin D deficiency, unspecified
CPT/HCPCS: 36415; 80053; 82306; 83036; 84443; 85025

== ENCOUNTER → 2023-11-18 | Outpatient (CLI) | payer MEDICARE, OTHER, SELFPAY ==
[2023-11-18 19:59] LABS: M R Staph aureus DNA By PCR Negative (Negative); Probe Check PASS; Specimen Processing Control PASS; Staph aureus DNA By PCR NEGATIVE (Negative)
[2023-11-21 15:08] LABS: HSV Culture Without Typing Positive (.)
== END | disposition home or self-care (01) ==
LOC: POLAB3 16:56
PROVIDERS: PCP Family Medicine Geriatric Medicine; Visit Provider Family Medicine Geriatric Medicine
DX: B00.9 Herpesviral infection, unspecified (principal); L03.314 Cellulitis of groin; B95.62 Methicillin resistant Staphylococcus aureus infection as the cause of diseases classified elsewhere; S31.109A Unspecified open wound of abdominal wall, unspecified quadrant without penetration into peritoneal cavity, initial encounter; X58.XXXA Exposure to other specified factors, initial encounter
CPT/HCPCS: 87070; 87205; 87255; 87640

== ENCOUNTER → 2024-04-23 | Outpatient (CLI) | payer MEDICARE, OTHER, SELFPAY ==
[2024-04-23 09:45] LABS: Absolute Lymphocyte Count 1.38 X10^3/uL (0.83-4.51); Absolute Neutrophil Count 3.1 X10^3/uL (2.0-7.7); Basophil# 0.04 X10^3/uL; Basophil% 0.8 % (0-1); Eosinophil# 0.14 X10^3/uL; Eosinophils% 2.7 % (0-5); Hematocrit 49.8 % (40-54); Hemoglobin 15.8 g/dL (13.0-16.5); Lymphocyte # 1.38 X10^3/ul (0.83-4.51); Mean Corp Hgb Conc 31.7 g/dL (32-36); Mean Corpuscular Hgb 30.9 pg (27.0-32.0); Mean Corpuscular Volume 97.3 fL (80-94); Mean Platelet Vol. 10.4 fl (6.2-12.0); Monocyte# 0.44 X10^3/uL; Monocyte% 8.6 % (0-10); NRBC Flagged by Analyzer 0 % (0-5); Neutrophil % 60.7 % (47-70); Platelet Count 262 K/mm3 (150-450); RBC Distribution Width SD 46.5 fl (35.1-43.9); Red Blood Count 5.12 M/mm3 (4.6-6.2); White Blood Count 5.1 K/mm3 (4.4-11.0)
[2024-04-23 10:35] LABS: Vitamin D,25 Hydroxy 69.6 ng/mL
[2024-04-23 10:39] LABS: ALB/GLOB Ratio 0.9 RATIO (0.9-2.4); AST(SGOT) 42 U/L (15-37); Alanine Aminotransfer ALT/SGPT 34 U/L (16-61); Albumin, Serum 4.1 g/dL (3.2-5.0); Alkaline Phosphatase 75 U/L (45-117); Anion Gap 5 (5-15); BUN 19 mg/dL (7-18); BUN/Creat Ratio 15.3 RATIO (10-20); Calcium,Total 10.5 mg/dL (8.5-10.1); Chloride 102 mmol/L (98-107); Creatinine, Serum 1.24 mg/dL (0.70-1.30); EST Glomerular Filtration Rate 60 mL/min (>60); Est Glom Filt Rate - Afr Amer 73 mL/min (>60); Globulin 4.4 g/dL (2.2-4.2); Glucose 131 mg/dL (74-106); Potassium 4.7 mmol/L (3.5-5.1); Protein, Total 8.5 g/dL (6.4-8.2); Sodium Level 138 mmol/L (136-145)
== END | disposition home or self-care (01) ==
LOC: POLAB3 09:17
PROVIDERS: PCP Family Medicine Geriatric Medicine; Visit Provider Family Medicine Geriatric Medicine
DX: I10 Essential (primary) hypertension (principal); E11.65 Type 2 diabetes mellitus with hyperglycemia; E55.9 Vitamin D deficiency, unspecified
CPT/HCPCS: 36415; 80053; 82306; 84443; 85025

== ENCOUNTER → 2024-04-30 | Outpatient (CLI) | payer MEDICARE, OTHER, SELFPAY ==
[2024-04-30 09:38] LABS: PTHIN 52.8 pg/mL (18.4-80.1)
== END | disposition home or self-care (01) ==
PROVIDERS: PCP Family Medicine Geriatric Medicine; Referring Provider Family Medicine Geriatric Medicine; Visit Provider Family Medicine Geriatric Medicine
DX: E83.52 Hypercalcemia (principal)
CPT/HCPCS: 36415; 83970

== ENCOUNTER → 2024-06-29 | Outpatient (CLI) | payer MEDICARE, OTHER, SELFPAY ==
[2024-06-29 10:55] LABS: Anion Gap 5 (5-15); BUN 23 mg/dL (7-18); BUN/Creat Ratio 18.1 RATIO (10-20); Calcium,Total 9.8 mg/dL (8.5-10.1); Chloride 104 mmol/L (98-107); Creatinine, Serum 1.27 mg/dL (0.70-1.30); EST Glomerular Filtration Rate 58 mL/min (>60); Est Glom Filt Rate - Afr Amer 71 mL/min (>60); Glucose 135 mg/dL (74-106); Potassium 4.1 mmol/L (3.5-5.1); Sodium Level 138 mmol/L (136-145)
== END | disposition home or self-care (01) ==
LOC: LAB 09:12
PROVIDERS: PCP Family Medicine Geriatric Medicine; Referring Provider Family Medicine Geriatric Medicine; Visit Provider Family Medicine Geriatric Medicine
DX: I10 Essential (primary) hypertension (principal)
CPT/HCPCS: 36415; 80048

== ENCOUNTER 2024-08-22 15:54 | Emergency (ER) | payer MEDICARE, OTHER, SELFPAY ==
[2024-08-22 15:55] VITALS: BP 154/69; PULSE 79; RESP 16; TEMP 35.6; O2SAT 99; BMI 22.8
--- NOTE | 2024-08-22 16:10 | EKG12_ITS ---
Test Reason : LEFT ARM PAIN Blood Pressure : */* mmHG Vent. Rate : 79 BPM Atrial Rate : 79 BPM P-R Int : 162 ms QRS Dur : 86 ms QT Int : 394 ms P-R-T Axes : 54 -58 -1 degrees QTcB Int : 451 ms Normal sinus rhythm Left axis deviation Abnormal ECG Confirmed by JENNA COCHRAN, ISRA ([id number]), newspaper managing editor LENA PRICE ([id number]) on 08/23/2024 8:24:52 AM Referred By: OSIRIS/LINDA Confirmed By: ISRA WEST MD
[2024-08-22 17:54] VITALS: BP 161/88; PULSE 81; RESP 16; O2SAT 99
[2024-08-22 18:34] LABS: Absolute Lymphocyte Count 1.86 X10^3/uL (0.83-4.51); Absolute Neutrophil Count 3.6 X10^3/uL (2.0-7.7); Basophil# 0.06 X10^3/uL; Eosinophil# 0.14 X10^3/uL; Eosinophils% 2.3 % (0-5); Hematocrit 45.3 % (40-54); Lymphocyte # 1.86 X10^3/ul (0.83-4.51); Mean Corp Hgb Conc 33.1 g/dL (32-36); Mean Corpuscular Hgb 31.8 pg (27.0-32.0); Mean Corpuscular Volume 96.2 fL (80-94); Mean Platelet Vol. 10.8 fl (6.2-12.0); Monocyte# 0.47 X10^3/uL; Monocyte% 7.6 % (0-10); NRBC Flagged by Analyzer 0 % (0-5); Neutrophil # 3.63 X10^3/uL (2.7-7.7); Neutrophil % 58.6 % (47-70); Platelet Count 225 K/mm3 (150-450); RBC Distribution Width CV 12.6 % (11.6-14.6); RBC Distribution Width SD 45.1 fl (35.1-43.9); Red Blood Count 4.71 M/mm3 (4.6-6.2); White Blood Count 6.2 K/mm3 (4.4-11.0)
[2024-08-22 18:42] LABS: D-Dimer Quantitative (DVT/PE) 0.33 FEU/ug/m (0.27-0.49)
--- NOTE | 2024-08-22 18:45 | RAD_ITS ---
PROCEDURE: CHEST PA AND LATERAL REASON FOR EXAM: Left arm pain. Left-sided back pain for few days. TECHNIQUE: Frontal and lateral views of the chest. COMPARISON: None. FINDINGS: Cardiac monitoring leads overlie the chest wall. The heart size is normal. No mediastinal widening. No hilar masses. Aorta is atherosclerotic and tortuous. The lungs are clear. Multilevel spondylosis Soft tissues unremarkable. RAD/Chest PA and Lateral IMPRESSION: No active cardiopulmonary disease. Reading Location: [facility]
[2024-08-22 19:00] VITALS: BP 133/81; PULSE 68; RESP 19; O2SAT 95
[2024-08-22 19:25] LABS: Anion Gap 9 (5-15); BUN 21 mg/dL (7-18); BUN/Creat Ratio 16.9 RATIO (10-20); Calcium,Total 9.3 mg/dL (8.5-10.1); Chloride 100 mmol/L (98-107); Creatinine, Serum 1.24 mg/dL (0.70-1.30); EST Glomerular Filtration Rate 60 mL/min (>60); Est Glom Filt Rate - Afr Amer 73 mL/min (>60); Estimated Creatinine Clearance 47.22 ml/min; Glucose 244 mg/dL (74-106); Potassium 3.4 mmol/L (3.5-5.1); Sodium Level 138 mmol/L (136-145); Troponin-I HS < 3 pg/mL (3.0-78.0)
--- NOTE | 2024-08-22 20:44 | EDS_ITS ---
HPI History of Present Illness Chief Complaint: Numb/Ting Informant: patient Narrative Narrative: Patient is a 79-year-old male with history of diabetes, hypertension and hyperlipidemia presenting with 2 weeks of intermittent left arm tingling and discomfort. He states it started after he was shoveling snow 2 weeks ago. At first he thought it was a muscle in his arm and went to his chiropractor. He had some treatments with help for couple hours. But this is progressed to become more of a discomfort intermittently his hand will feel cold. He also gets a discomfort on his left ribs under his axilla. States that he was becoming more constant. It is usually worse when he is laying down and resting and better when he is active. At first he did also feel better when he put his hand above his head. He states the pain in his back is also now constant. He notes over the past 2 days has been feeling more fatigued. He is been taking exercise Tylenol with mild help with his symptoms. He was concerned that this could possibly be cardiac given his age so he came in for further evaluation. No other complaints or concerns reported at this time. [facility] Medical History Type 2 diabetes mellitus Enlarged prostate Hypertension High cholesterol Home Medications ?Medication ?Instructions ?Recorded ?Last Taken ?Type finasteride 5 mg tablet 5 mg PO DAILY 05/16/20 Unkno wn History gabapentin 100 mg capsule 100 mg PO DAILY 05/16/20 Unk nown History metformin 500 mg tablet,extended 500 mg PO BID 0 Unknown History release 24 hr pioglitazone 30 mg tablet 30 mg PO DAILY 05/16/20 Unkn own History rosuvastatin 40 mg tablet 40 mg PO QHS 05/16/20 Unknow n History methylprednisolone 4 mg tablets in 4 mg PO UD ##1 05/21 03/09 Unknown Rx a dose pack prednisone 20 mg tablet 40 mg (2 x 20 mg) PO DAILY # 8 tabs 04/27/22 Unknown Rx Allergy/AdvReac Type Severity Reaction Status Date / Time lisinopril Allergy Angioedema Verified 08/22/24 15:58 Social History household members: none housing: house current occupational status: employed Smoking Status: Never smoker ROS ROS ED Constitutional Constitutional ED: Reports other Details: Fatigue ; Denies chills or fever(s) Cardiovascular Cardiovascular: Denies chest pain Respiratory/Chest Respiratory/Chest: Denies cough or dyspnea Gastrointestinal Gastrointestinal: Denies nausea or vomiting Musculoskeletal Musculoskeletal: Reports back pain and other Details: left arm pain Integumentary Denies rash Neurologic Neurologic: Reports paresthesias LUE; Denies weakness Psychiatric Psychiatric: Denies anxiety Hematologic/Lymphatic Hematologic/Lymphatic: Denies easy bleeding or easy bruising EXAM Physical Exam Const Vital Signs: 08/22/24 15:55 08/22/24 17:54 08/22/24 19:00 Temperature 96.1 F L Temperature Source Temporal Pulse Rate 79 81 68 Respiratory Rate 16 16 19 H Blood Pressure 154/69 H 161/88 H 133/81 H Blood Pressure Mean 97 112 98 Pulse Ox 99 99 95 Positive well nourished and well developed General Appearance ED: well developed and NAD HEENT Reports moist mucous membranes Eyes PERRL Neck supple and no JVD Chest Wall inspection of chest normal and palpation of chest normal Resp normal respiratory effort and clear to auscultation bilaterally Auscultation: Negative for rales, rhonchi or wheezes Cardio regular rate, regular rhythm and no murmurs GI normal to inspection, nondistended, normoactive bowel sounds and non-tender Back/Spine Back/Spine Narrative: Mild tender palpation of the lateral left ribs approximately rib 6 Cervical Spine: Negative for cervical spine tenderness Thoracic Spine / Upper Back: Negative for thoracic spinal tenderness Extremity Extremity Narrative: No deformity. No reproducible tenderness palpation. 2+ radial pulses. Normal strength and sensation of the hand. I do not appreciate any cold to the hands. Normal capillary refill. Neuro oriented x3 Sensorium / Orientation: alert Motor Exam: Negative for general weakness Psych mental status grossly normal Skin no rashes or lesions noted and no wounds MDM MDM MDM Narrative Medical decision making narrative: Patient evaluated for left arm discomfort and fatigue over the past 2 weeks. Seem to start after shoveling snow. Differential includes cervical radiculopathy, muscle skeletal pain, referred cardiac pain, pneumonia and pneumothorax. There is no overlying rash suspicion for shingles. Patient overall is well-appearing in the emergency room. He is mildly hypertensive but that is improved without further intervention. Pain is not reproducible. Low suspicion for thoracic outlet syndrome. Negative Spurling's maneuver. CBC, BMP, high since he troponin D-dimer and chest x-ray as well as EKG are normal. Discussed with patient this time I feel that this is likely more muscle skeletal or possibly cervical radiculopathy. He should continue to follow-up with his chiropractor as well as his primary care doctor. Discussed that this might be something that gets better with time or might require physical therapy or more advanced imaging of his neck and shoulder. Discussed that his kidney function is normal and if he needed to take Aleve twice a day for discomfort he could do that as well. He verbalized agreement or stands plan. Discharged home in stable condition. Is given return precautions Lab Data Attestation: I reviewed the patient's lab results. Labs: Laboratory Results - last 24 hr 08/22/24 08/22/24 17:18 18:22 WBC 6.2 RBC 4.71 Hgb 15.0 Hct 45.3 MCV 96.2 H MCH 31.8 MCHC 33.1 RDW Std Deviation 45.1 H RDW Coeff of Juan Manuel 12.6 Plt Count 225 MPV 10.8 Immature Gran % (Auto) 0.500 Neut % (Auto) 58.6 Lymph % (Auto) 30.0 [place] % (Auto) 7.6 Eos % (Auto) 2.3 Baso % (Auto) 1.0 Absolute Neuts (auto) 3.6 Absolute Lymphs (auto) 1.86 Nucleated RBC % 0 D-Dimer Quant (PE/DVT) 0.33 Sodium 138 Potassium 3.4 L Chloride 100 Carbon Dioxide 29.0 Anion Gap 9 BUN 21 H Creatinine 1.24 Estim Creat Clear Calc 47.22 Est GFR (MDRD) Af Amer 73 Est GFR (MDRD) Non-Af 60 BUN/Creatinine Ratio 16.9 Glucose 244 H Calcium 9.3 Troponin I High Sens < 3 L Radiography Chest X-Ray - ED: 2 View, Read by ED Physician, Read by Radiologist and No Acute Disease Diagnostic Testing: Clinical Impression(s) from Imaging Studies Chest X-Ray 08/22/24 18:45 IMPRESSION: No active cardiopulmonary disease. Reading [facility] Rhythm Strip Rhythm Strip: Sinus Rhythm Rate: 79 Ectopy: None EKG Initial EKG: Attestation: I personally reviewed and interpreted this EKG as follows: Interpretation: Sinus Rhythm Comments: Normal sinus rhythm at a rate of 79 bpm Left axis deviation Normal intervals Normal ST segment Discharge Plan Triage Chief Complaint: Numb/Ting ED Provider: Fabiola Gunter Dx/Rx/DC Orders Clinical Impression: Arm pain, left Instructions: ED Muscle Strain, Extremity Prescriptions: No Action gabapentin 100 MG capsule 100 mg PO DAILY pioglitazone 30 MG tablet 30 mg PO DAILY metformin 500 MG tablet 500 mg PO BID finasteride 5 MG tablet 5 mg PO DAILY rosuvastatin 40 MG tablet 40 mg PO QHS methylprednisolone 4 MG tablet 4 mg PO UD Qty: 1 0RF Rx Instructions: START ON 06/07/20 prednisone 20 mg tablet 40 mg PO DAILY Qty: 8 0RF Primary Care Provider: Tigre Ortiz Chi Referrals: Tigre Ortiz Chi, MD [Primary Care Provider] - Activity Restrictions/Additional Instructions: Your workup today was overall very reassuring. There is no signs of any acute cardiac process or pneumonia. I am not sure if this is muscle skeletal or possibly something called a cervical radiculopathy (where the nerves to your arm are getting pinched in your neck or shoulder). Please follow-up with your primary care doctor as well as your chiropractor. You may take a low-dose of Aleve once or twice a day to help with the pain if Tylenol is not helping enough. Print Language: Pashto Disposition Disposition: Home, Self Care
[2024-08-22 20:55] VITALS: BP 133/81; PULSE 68; RESP 19; TEMP 36.8; O2SAT 95
== END 2024-08-22 21:07 | disposition home or self-care (01) ==
PROVIDERS: Emergency Provider Emergency Medicine; PCP Family Medicine Geriatric Medicine; Visit Provider Emergency Medicine
DX: M79.602 Pain in left arm (principal); E11.9 Type 2 diabetes mellitus without complications; I10 Essential (primary) hypertension; E78.00 Pure hypercholesterolemia, unspecified; Z79.84 Long term (current) use of oral hypoglycemic drugs; Z79.899 Other long term (current) drug therapy
CPT/HCPCS: 71046; 80048; 84484; 85025; 85379; 93005; 99283; A4216

== ENCOUNTER → 2024-09-13 | Outpatient (CLI) | payer MEDICARE, OTHER, SELFPAY ==
--- NOTE | 2024-09-14 16:23 | STRESSREP_ITS ---
Stress Test Report Date: 09/13/2024 Procedure: Exercise tolerance test/imaging study Indications: Chest pain Consent: Per the patient Procedure: The patient exercised on a Ervin protocol for 7 minutes achieving a peak heart rate of 134 bpm (94% predicted maximal heart rate) with a peak blood pressure 154/68 mmHg and a peak MET capacity of 10.1 METs. The baseline ECG demonstrated normal sinus rhythm. The peak exercise ECG demonstrated no significant ischemic changes. EKG during recovery revealed no significant ischemic changes [There were no cardiac dysrhythmias pretest, during exercise, or recovery]. The functional capacity was considered excellent for age. There was [no complaint of chest discomfort during exercise or recovery]. The examination was discontinued secondary to achieving target heart rate. Impression: 1. Technically adequate (percent predicted maximal heart rate greater than 85%) exercise tolerance test 2. Stress test is negative for exercise-induced EKG changes of ischemia 3. The test test is negative for exercise-induced chest pain 4. Functional capacity is excellent for age 5. Nuclear images pending Myocardial perfusion imaging study: Technique: The patient was injected with 11.7 mCi of technetium 99m Cardiolite and subsequently rest SPECT Cardiolite nuclear imaging was obtained in the h orizontal long, vertical long, and short axis views. The patient exercised on a Ervin protocol. Please see above for details. The patient was injected with 34.6 mCi of technetium 99m Cardiolite and subsequently stress SPECT Cardiolite nuclear imaging was obtained in the horizontal long, vertical long, and short axis views. A gated Cardiolite study at peak stress was obtained. Interpretation: Rest and stress SPECT Cardiolite nuclear imaging status post realignment, normalization, and attenuation correction, demonstrates no evidence of significant ischemia or infarction. There is mild decrease in the radioisotope uptake on the inferior wall on both the stress and rest images suggestive of diaphragmatic attenuation artifact. The gated Cardiolite study demonstrates no significant regional wall motion abnormalities. The reported LVEF is greater than 70%. Impression: 1. There is no evidence of significant ischemia or infarction. 2. The gated Cardiolite study reports an LVEF of greater than 70%. This note was generated with [employer] software. It may contain incorrect words, spelling, and punctuation that were not noted in checking the note before signing.
== END | disposition home or self-care (01) ==
LOC: CVS 06:25
PROVIDERS: PCP Family Medicine Geriatric Medicine; Referring Provider Family Medicine Geriatric Medicine; Visit Provider Family Medicine Geriatric Medicine
DX: R07.9 Chest pain, unspecified (principal)
CPT/HCPCS: 78452; 93017; A9500; A4216

== ENCOUNTER → 2024-10-27 | Outpatient (CLI) | payer MEDICARE, OTHER, SELFPAY ==
--- NOTE | 2024-10-27 14:23 | NEURO ---
NCS and/or EMG Patient Report Ordering Doctor: Tigre Ortiz Chi DATE OF SERVICE: 10/27/24 Alfredo presents with complaints of intermittent numbness and pain in the left arm. Electrodiagnostic findings: Left median motor nerve demonstrates normal distal latency, amplitude and conduction velocity. Normal left ulnar motor response, including conduction across the elbow. Normal left median and left ulnar F?waves. Prolonged left median sensory latency at the wrist. Normal ulnar radial sensory responses needle EMG testing was performed the left upper limb. All muscles tested, including left cervical paraspinals, showed no evidence of denervation with normal motor unit action potentials. Electrodiagnostic impression: This is an abnormal study in the left upper limb 1. Electrodiagnostic findings suggestive of left-sided median mononeuropathy. This is consistent with a mild left carpal tunnel syndrome. 2. No electrodiagnostic evidence for cervical radiculopathy Multi Select Codes Neurology Neurology Interp Codes: 63774-11 Musc test done w/n test comp (interp) and 92381-65 Nrv cndj test 7-8 studies (interp)
== END | disposition home or self-care (01) ==
LOC: PSN 13:35
PROVIDERS: PCP Family Medicine Geriatric Medicine; Referring Provider Family Medicine Geriatric Medicine; Visit Provider Family Medicine Geriatric Medicine
DX: R20.0 Anesthesia of skin (principal); R07.9 Chest pain, unspecified
CPT/HCPCS: 95886; 95910

== ENCOUNTER → 2024-10-29 | Outpatient (CLI) | payer MEDICARE, OTHER, SELFPAY ==
[2024-10-29 10:58] LABS: Absolute Lymphocyte Count 1.71 X10^3/uL (0.83-4.51); Absolute Neutrophil Count 6.1 X10^3/uL (2.0-7.7); Basophil# 0.09 X10^3/uL; Basophil% 1.1 % (0-1); Eosinophil# 0.08 X10^3/uL; Eosinophils% 0.9 % (0-5); Hemoglobin 16.1 g/dL (13.0-16.5); Lymphocyte # 1.71 X10^3/ul (0.83-4.51); Mean Corp Hgb Conc 33.5 g/dL (32-36); Mean Corpuscular Hgb 32.5 pg (27.0-32.0); Mean Platelet Vol. 10.4 fl (6.2-12.0); Monocyte# 0.56 X10^3/uL; Monocyte% 6.6 % (0-10); NRBC Flagged by Analyzer 0 % (0-5); Neutrophil # 6.07 X10^3/uL (2.7-7.7); Platelet Count 265 K/mm3 (150-450); RBC Distribution Width CV 12.3 % (11.6-14.6); Red Blood Count 4.95 M/mm3 (4.6-6.2); White Blood Count 8.5 K/mm3 (4.4-11.0)
[2024-10-29 12:36] LABS: ALB/GLOB Ratio 1.3 RATIO (0.9-2.4); AST(SGOT) 36 U/L (<=37); Alanine Aminotransfer ALT/SGPT 27 U/L (<=46); Albumin, Serum 4.4 g/dL (3.4-4.8); Alkaline Phosphatase 86 U/L (40-129); Anion Gap 18 (5-15); BUN 22 mg/dL (4-19); BUN/Creat Ratio 18.3 RATIO (10-20); Calcium,Total 10.2 mg/dL (7.6-11.0); Carbon Dioxide 25.8 mmol/L (21.0-32.0); Chloride 97 mmol/L (98-108); Creatinine, Serum 1.21 mg/dL (0.70-1.20); EST Glomerular Filtration Rate 61 (>60); Globulin 3.4 g/dL (2.2-4.2); Glucose 141 mg/dL (70-99); Protein, Total 7.8 g/dL (5.9-8.4); Sodium Level 141 mmol/L (133-145); Total Bilirubin 0.66 mg/dL (0.00-1.30); Vitamin D,25 Hydroxy 65.2 ng/mL (30-100)
== END | disposition home or self-care (01) ==
LOC: LAB 10:10
PROVIDERS: PCP Family Medicine Geriatric Medicine; Referring Provider Family Medicine Geriatric Medicine; Visit Provider Family Medicine Geriatric Medicine
DX: I10 Essential (primary) hypertension (principal); E11.65 Type 2 diabetes mellitus with hyperglycemia; E55.9 Vitamin D deficiency, unspecified
CPT/HCPCS: 36415; 80053; 82306; 84443; 85025

== ENCOUNTER → 2025-01-27 | Outpatient (CLI) | payer MEDICARE, OTHER, SELFPAY ==
[2025-01-27 09:58] LABS: Hematocrit 46.6 % (40-54); Hemoglobin 15.6 g/dL (13.0-16.5); Immature Granulocytes Count 0.020 X10^3/uL (0.0-0.0); Mean Corp Hgb Conc 33.5 g/dL (32-36); Mean Corpuscular Volume 95.9 fL (80-94); Mean Platelet Vol. 10.3 fl (6.2-12.0); NRBC Flagged by Analyzer 0 % (0-5); Platelet Count 256 K/mm3 (150-450); RBC Distribution Width CV 12.3 % (11.6-14.6); RBC Distribution Width SD 43.7 fl (35.1-43.9); Red Blood Count 4.86 M/mm3 (4.6-6.2); White Blood Count 5.9 K/mm3 (4.4-11.0)
[2025-01-27 11:23] LABS: AST(SGOT) 30 U/L (<=37); Alanine Aminotransfer ALT/SGPT 29 U/L (<=46); Albumin, Serum 4.5 g/dL (3.4-4.8); Alkaline Phosphatase 79 U/L (40-129); Anion Gap 12 (5-15); BUN 21 mg/dL (4-19); BUN/Creat Ratio 19.4 RATIO (10-20); Calcium,Total 9.9 mg/dL (7.6-11.0); Carbon Dioxide 26.8 mmol/L (21.0-32.0); Chloride 101 mmol/L (98-108); Globulin 3.0 g/dL (2.2-4.2); Glucose 155 mg/dL (70-99); Potassium 4.1 mmol/L (3.3-5.1); Vitamin D,25 Hydroxy 65.6 ng/mL (30-100)
[2025-01-27 11:49] LABS: Creatinine, Urine (random) 97.30 mg/dL (39.00-259.00)
[2025-01-27 11:58] LABS: Microalbumin,Random Urine 26.2 mg/L (NO RANGE EST.)
== END | disposition home or self-care (01) ==
LOC: POLAB3 09:47
PROVIDERS: PCP Family Medicine Geriatric Medicine; Visit Provider Family Medicine Geriatric Medicine
DX: I12.9 Hypertensive chronic kidney disease with stage 1 through stage 4 chronic kidney disease, or unspecified chronic kidney disease (principal); E11.22 Type 2 diabetes mellitus with diabetic chronic kidney disease; E55.9 Vitamin D deficiency, unspecified; N18.9 Chronic kidney disease, unspecified
CPT/HCPCS: 36415; 80053; 82043; 82306; 82570; 84443; 85025

== ENCOUNTER → 2025-02-23 | Outpatient (CLI) | payer MEDICARE, OTHER, SELFPAY | END | disposition home or self-care (01) | LOC: POLAB3 16:23 | PROVIDERS: PCP Family Medicine Geriatric Medicine; Visit Provider Family Medicine Geriatric Medicine | DX: E11.22 Type 2 diabetes mellitus with diabetic chronic kidney disease (principal); N18.9 Chronic kidney disease, unspecified | CPT/HCPCS: 36415; 83036 ==

== ENCOUNTER → 2025-05-20 | Outpatient (CLI) | payer MEDICARE, OTHER, SELFPAY ==
[2025-05-20 09:47] LABS: Hematocrit 46.9 % (40-54); Hemoglobin 15.4 g/dL (13.0-16.5); Immature Granulocytes Count 0.020 X10^3/uL (0.0-0.0); Mean Corp Hgb Conc 32.8 g/dL (32-36); Mean Corpuscular Volume 97.3 fL (80-94); Mean Platelet Vol. 10.2 fl (6.2-12.0); NRBC Flagged by Analyzer 0 % (0-5); Platelet Count 272 K/mm3 (150-450); RBC Distribution Width CV 12.9 % (11.6-14.6); RBC Distribution Width SD 46.1 fl (35.1-43.9); Red Blood Count 4.82 M/mm3 (4.6-6.2); White Blood Count 6.2 K/mm3 (4.4-11.0)
[2025-05-20 11:08] LABS: AST(SGOT) 47 U/L (<=37); Alanine Aminotransfer ALT/SGPT 44 U/L (<=46); Albumin, Serum 4.3 g/dL (3.4-4.8); Alkaline Phosphatase 87 U/L (40-129); Anion Gap 10 (5-15); BUN 22 mg/dL (4-19); BUN/Creat Ratio 18.6 RATIO (10-20); Calcium,Total 9.9 mg/dL (7.6-11.0); Carbon Dioxide 29.2 mmol/L (21.0-32.0); Chloride 101 mmol/L (98-108); Globulin 3.3 g/dL (2.2-4.2); Glucose 106 mg/dL (70-99); Potassium 4.2 mmol/L (3.3-5.1); Vitamin D,25 Hydroxy 59.5 ng/mL (30-100)
[2025-05-20 17:35] LABS: Xtra Tube Kwok EXTRA TUBE
== END | disposition home or self-care (01) ==
LOC: POLAB3 09:33
PROVIDERS: PCP Family Medicine Geriatric Medicine; Visit Provider Family Medicine Geriatric Medicine
DX: I12.9 Hypertensive chronic kidney disease with stage 1 through stage 4 chronic kidney disease, or unspecified chronic kidney disease (principal); E11.22 Type 2 diabetes mellitus with diabetic chronic kidney disease; N18.9 Chronic kidney disease, unspecified; E55.9 Vitamin D deficiency, unspecified
CPT/HCPCS: 36415; 80053; 82306; 84443; 85025